=== PATIENT | female | born 1955 | race Caucasian/White ===

== ENCOUNTER 2025-01-22 21:24 | Inpatient (IN) | payer MEDICARE, MEDICAID, SELFPAY ==
[2025-01-22] VITALS (14 sets, daily range): BP systolic 139–193; BP diastolic 86–118; PULSE 89–109; RESP 16–25; TEMP 36.9; O2SAT 94–100
--- NOTE | 2025-01-22 21:27 | PD.EDALLER ---
ED Allergic Reaction RME/HPI General Chief complaint: Allergic Reaction Stated complaint: ALLERGIC REACTION Time Seen by Provider: 01/22/25 21:28 Arrival date/time: 01/22/25 21:24 RME / HPI RME / HPI narrative: Dr. [facility] Main ED Evaluation: 69yo female presents to the ED for progressive lingual swelling after eating a burrito with reported difficulty breathing. EMS was summoned and found the patient to be in [id number] distress. Patient was administered Benadryl 50mg IV. No IV established en route. Related Data Home Medications ?Medication ?Instructions ?Recorded ?Confirmed olanzapine 20 mg tablet 20 mg PO QDAY 12/21/18 02/07/21 oxybutynin chloride 10 mg 10 mg PO QDAY 01/09/20 02/07/21 tablet,extended release 24 hr (Ditropan XL) omeprazole 20 mg tablet,delayed 20 mg PO DAILY 05/02/20 02/07/21 release amlodipine 5 mg tablet 5 mg PO QDAY 02/07/21 02/07/21 Held on 02/08/21. Instructions: Resume on 02/22/21. Patient has had low systolic blood pressures while admitted. Systolic ranging between 100-110. She should see her PCP prior to resuming this medication. Highest systolic BP reading throughout hospitalization 144. famotidine 40 mg tablet 20 mg PO HS 02/07/21 02/07/21 lisinopril 20 1 tab PO QDAY 02/07/21 02/07/21 mg-hydrochlorothiazide 25 mg tablet Held on 02/08/21. Instructions: Resume on 02/22/21. Patient has had low systolic blood pressures while admitted. Systolic ranging between 100-110. She should see her PCP prior to resuming this medication. Highest systolic BP reading throughout hospitalization 144. Previous Rx's ?Medication ?Instructions ?Recorded albuterol sulfate 90 mcg/actuation 2 inh inhalation Q6H PRN shortness 02/17/21 breath activated powder inhaler of breath or wheezing #1 ea hydrocodone 5 mg-acetaminophen 325 1 tab PO BID PRN pain #10 tabs 03/11/21 mg tablet ibuprofen 800 mg tablet 800 mg PO TID PRN pain #30 tabs 03/11/21 Allergies Allergy/AdvReac Type Severity Reaction Status Date / Time No Known Allergies Allergy Verified 01/22/25 21:26 Review of Systems Review of Systems ROS Unobtainable: unobtainable due to medical condition Past Medical History Past Medical History NEUROLOGIC: Positive Seizures; Negative Neurological Disorders CARDIAC: Positive Cardiac Disorders, Hypercholesterolemia and Hypertension; Negative Congestive Heart Failure RESPIRATORY: Positive Asthma; Negative Chronic Obstructive Pulmonary Disease (COPD) GASTROINTESTINAL: Positive Gastrointestinal Disorders and Cirrhosis GENITOURINARY: Positive Genitourinary Disorders and Renal Disease REPRODUCTIVE: Negative Pelvic Inflammatory Disease MUSCULOSKELETAL: Positive Musculoskeletal Disorders and Arthritis ENDOCRINE: Negative Endocrine Disorders, Diabetes Mellitus Type 1 or Diabetes Mellitus Type 2 HEMATOLOGIC: Negative Blood Disorders or Sickle Cell Disease PSYCHO/SOCIAL: Positive Bipolar Disorder, Depression and Anxiety OTHER HISTORY: Positive Blood Transfusions; Negative Autoimmune Disease, Blood Transfusion Reaction, Anesthesia Reactions, Organ Transplant, MRSA, Vancomycin-Resistant Enterococci, Clostridium Difficile or Cancer Family History FAMILY HISTORY: Negative Family Cardiac Disorders Surgical History SURGICAL: Positive Section; Negative Endocrine Surgery, Thyroidectomy, Ear Surgery, Abdominal Surgery, Nephrectomy, Neurologic Surgery or Organ Transplant Social History SMOKING STATUS: Current some day smoker SECOND HAND EXPOSURE: Yes SUBSTANCE USE: methamphetamine ED Exam Narrative Physical exam: GENERAL APPEARANCE: alert and oriented x 4, well-developed, well-nourished, no acute distress HEENT: Normocephalic, atraumatic; pupils equal, round, reactive to light; EOMI; mucous membranes pink, moist; massive lingual edema with upper essence of the tongue in contact with the palate, 4+ sublingual swelling NECK: Supple, slight stridor LUNGS: CTABL; no wheezes, no rales, no rhonchi HEART: Regular rate, regular rhythm; normal S1, S2; no murmurs ABDOMEN: non distended; normal BS; soft, no tenderness, no guarding, no rebound; no masses, no organomegaly, no hernia BACK: no CVA tenderness EXTREMITIES: atraumatic; no edema NEUROLOGIC: awake; alert and oriented x4; cranial nerves II-XII grossly intact; no focal sensory or motor deficits SKIN: warm, dry, normal color; no rashes Course Course Course Narrative: 2123: Patient was seen by me immediately upon arrival. 2202: Patient intubated. Quality Measures none Orders Category Date Time Status Baird [Urinary Catheter] QS Care 01/22/25 23:24 Active XR chest 1V post procedure Stat Exams 01/22/25 21:35 Completed ABG [Arterial Blood Gas] Stat Lab 01/22/25 23:05 Completed CBC [CBC] Stat Lab 01/22/25 21:49 Completed CMP [Comprehensive Metabolic Panel] Stat Lab 01/22/25 21:49 Completed COVID-19 Antigen (In-House) Stat Lab 01/22/25 23:35 Completed Drug Screen,Urine Stat Lab 01/22/25 23:37 Completed Sputum Culture and Gram Stain Routine Lab 01/22/25 23:06 Received Type and Screen Stat Lab 01/22/25 23:56 Results Urinalysis, C/S if Indicated Stat Lab 01/22/25 23:37 Completed DiphenhydrAMINE INJ [Benadryl Inj] Med 01/22/25 21:28 Discontinued 25 mg IVP X1 ONE EPINEPHrine Inj [Adrenalin Inj] Med 01/22/25 21:28 Discontinued 0.3 mg SC X1 ONE EPINEPHrine Rt Janelle [Racemic Epi Rt Janelle] Med 01/22/25 21:28 Discontinued 0.5 ml INH X1 ONE EPINEPHrine Rt Janelle [Racemic Epi Rt Janelle] Med 01/22/25 22:34 Discontinued 0.5 ml INH X1 ONE EPINEPHrine Rt Janelle [Racemic Epi Rt Janelle] Med 01/22/25 21:46 Discontinued 1 ml .ROUTE .STK-MED ONE EPINEPHrine in NS 16 MG IVPB [Adrenalin/NS 16 MG IVPB] Med 01/22/25 21:34 Active 16 mg in 250 ml IV 0.05 mcg/kg/min Icatibant Med 01/22/25 23:42 Discontinued 30 mg SC X1 ONE Ketamine Inj Med 01/22/25 21:33 Discontinued 300 mg IVP X1 ONE Prochlorperazine Inj [Compazine Inj] Med 01/22/25 21:28 Discontinued 5 mg IV X1 ONE Propofol 1,000 mg Ivpb [Diprivan Ivpb] Med 01/22/25 21:55 Discontinued 1,000 mg in 100 ml IV .STK-MED Propofol 1,000 mg Ivpb [Diprivan Ivpb] Med 01/22/25 22:16 Active 1,000 mg in 100 ml IV 5 mcg/kg/min Propofol Inj [Diprivan Inj] Med 01/22/25 21:59 Discontinued 100 mg IV X1 ONE Rocuronium Inj [Zemuron Inj] Med 01/22/25 22:03 Discontinued 100 mg .ROUTE .STK-MED ONE Rocuronium Inj [Zemuron Inj] Med 01/22/25 22:01 Discontinued 70 mg IVP X1 ONE Sodium Chloride Rt Janelle 0.9% [NS Rt Janelle 0.9%] Med 01/22/25 21:28 Active 3 ml INH PRN PRN Sodium Chloride Rt Janelle 0.9% [NS Rt Janelle 0.9%] Med 01/22/25 22:34 Active 3 ml INH PRN PRN dexAMETHasone INJ [Decadron Inj] 10 mg Med 01/22/25 21:28 Discontinued Sodium Chloride 0.9% [Ns] 50 ml IV X1 Mechanical [Volume Ventilator] Stat RT 01/22/25 Active Sputum Induction PRN RT 01/22/25 22:45 Ordered Vital Signs Vital signs: Vital Signs Temperature 98.4 F 01/22/25 21: Pulse Rate 93 01/22/25 21:26 Respiratory Rate 16 01/22/25 21:26 Blood Pressure 139/98 H 01/22/25 21:26 Pulse Oximetry (%) 100 01/22/25 21:26 Oxygen Delivery Method Oxy Mask 01/22/25 21:26 PROCEDURES: Intubation Time out performed: No sedative: other (Ketamine 300mg and Propofol 100mg) Laryngoscope: fiber optic video scope Assist Device Used: fiber optic device ET Tube Size: 6 ET Tube Uncuffed: No Tube Secured Depth (cm): 23 Tube Secured Location: other (gum) Tube Placement Confirmation: visualized tube passing through cords, equal breath sounds bilaterally, no breath sounds over epigastrium and confirmation by capnometry Patient Tolerated Procedure: well and no complications Allergic Reaction MDM Narrative MDM Narrative:: Scribe Attestation: 01/22/25 Jesica Segovia am scribing for and in the presence of Dr. Thomas. 69yo female presents to the ED for progressive lingual swelling after eating a burrito with reported difficulty breathing. EMS was summoned and found the patient to be in [id number] distress. Patient was administered Benadryl 50mg IV. Please see PE findings. Patient was immediately placed on bus monitor, IV established, and patient received combination of antihistamines, IV steroids, subcutaneous, inhaled, and IV epi with slow gradual steady improvement and reduction of tongue swelling. Patient maintained an oxygen saturation in the high 90s throughout ED course. After discussion with the patient, decision was made to intubate her for airway protection. Patient remained hemodynamically stable without hypoxia throughout entire course. Hospitalist consulted and agrees to admit. Dx: anaphylactic shocl Patient data External records reviewed:: [facility] previous records (Per chart review, patient has no relevant previous ED visits.) and EMS form Clinical information provided by:: EMS Social determinants that could affect healthcare access:: none Patient has the following chronic illnesses:: seizures, HTN, cirrhosis How is presenting disease/condition affected by chronic disease/condition?: uneffected by Evaluation data The following diagnostics were reviewed and interpreted by me:: lab results, radiology exam(s) and EKG tracing(s) Lab and/or radiology exams considered but not ordered:: none Interpretation Summary: EKG done at 2134, sinus rhythm, rate of 97, no ectopy, left axis deviation, LAHB, according to my interpretation. Medications / Prescriptions Medications or Prescriptions considered but not ordered:: none Medication administrations:: Medication Administration History Diphenhydramine HCl (Diphenhydramine Inj 50 Mg/Ml Vial) 25 mg IVP Q6HR IVANA Stop: 02/22/25 05:59 Epinephrine/Sodium Chloride (Adrenalin/Ns 16 Mg Ivpb) 16 mg in 250 mls @ 4.842 mls/hr IV .Q24H PRN; Protocol PRN Reason: Per Protocol Stop: 02/21/25 21:33 Last Admin: 01/22/25 21:45 Dose: 0.05 mcg/kg/min, 4.842 mls/hr Documented By: BECKY Propofol (Diprivan Ivpb) 1,000 mg in 100 mls @ 3.099 mls/hr IV .Q24H PRN; Protocol PRN Reason: PER PROTOCOL Stop: 02/21/25 22:15 Last Titration: 01/23/25 00:39 Dose: 50 mcg/kg/min, 30.99 mls/hr Documented By: Titration: 01/23/25 00:35 Dose: 40 mcg/kg/min, 24.792 mls/hr Documented By: Titration: 01/23/25 00:30 Dose: 35 mcg/kg/min, 21.693 mls/hr Documented By: Titration: 01/23/25 00:25 Dose: 30 mcg/kg/min, 18.594 mls/hr Documented By: Titration: 01/23/25 00:20 Dose: 25 mcg/kg/min, 15.495 mls/hr Documented By: Titration: 01/23/25 00:15 Dose: 20 mcg/kg/min, 12.396 mls/hr Documented By: Titration: 01/23/25 00:10 Dose: 15 mcg/kg/min, 9.297 mls/hr Documented By: Titration: 01/22/25 23:52 Dose: 10 mcg/kg/min, 6.198 mls/hr Documented By: Titration: 01/22/25 23:46 Dose: 10 mcg/kg/min, 6.198 mls/hr Documented By: Titration: 01/22/25 22:20 Dose: 5 mcg/kg/min, 3.099 mls/hr Documented By: Admin: 01/22/25 22:09 Dose: 5 mcg/kg/min, 3.099 mls/hr Documented By: BECKY Co-signed By: Fentanyl Citrate (Sublimaze Inj 2,500 Mcg/250 Ml Bag) 2,500 mcg in 250 mls @ 2.5 mls/hr IV .Q24H PRN; Protocol PRN Reason: PER PROTOCOL Stop: 01/28/25 00:32 Last Admin: 01/23/25 00:46 Dose: 25 mcg/hr, 2.5 mls/hr Documented By: BECKY Co-signed By: Non-Formulary Medication (Icatibant) 30 mg SC X1 ONE Stop: 01/23/25 06:02 Sodium Chloride (Sodium Chloride Rt Janelle 0.9% 3 Ml Nebu) 3 ml INH PRN PRN PRN Reason: SOLN Stop: 02/21/25 21:27 Sodium Chloride (Sodium Chloride Rt Janelle 0.9% 3 Ml Nebu) 3 ml INH PRN PRN PRN Reason: SOLN Stop: 02/21/25 22:33 Discontinued Medications Diphenhydramine HCl (Diphenhydramine Inj 50 Mg/Ml Vial) 25 mg IVP X1 ONE Stop: 01/22/25 21:29 Last Admin: 01/22/25 21:42 Dose: 25 mg Documented By: BECKY Epinephrine (Epinephrine Rt Janelle 0.5 Ml Nebu) 0.5 ml INH X1 ONE Stop: 01/22/25 21:29 Last Admin: 01/22/25 21:30 Dose: 0.5 ml Documented By: JOHN Epinephrine (Epinephrine Rt Janelle 0.5 Ml Nebu) Confirm Administered Dose 1 ml .ROUTE .STK-MED ONE Stop: 01/22/25 21:47 Last Admin: 01/22/25 22:45 Dose: Not Given Documented By: JOHN Non-Admin Reason: Duplicate Medication on eMAR Epinephrine (Epinephrine Rt Janelle 0.5 Ml Nebu) 0.5 ml INH X1 ONE Stop: 01/22/25 22:35 Last Admin: 01/22/25 21:47 Dose: 0.5 ml Documented By: JOHN Epinephrine HCl (Epinephrine Inj 1 Mg/Ml Amp) 0.3 mg SC X1 ONE Stop: 01/22/25 21:29 Last Admin: 01/22/25 21:41 Dose: 0.3 mg Documented By: BECKY Famotidine (Famotidine Inj 10 Mg/Ml Vial 2 Ml) 20 mg IVP X1 ONE Stop: 01/23/25 00:12 Last Admin: 01/23/25 00:27 Dose: 20 mg Documented By: BECKY Dexamethasone Sodium Phosphate (10 mg/ Sodium Chloride) 51 mls @ 102 mls/hr IV X1 ONE Stop: 01/22/25 21:29 Last Infusion: 01/22/25 22:33 Dose: Infused Documented By: Admin: 01/22/25 21:42 Dose: 102 mls/hr Documented By: BECKY Propofol (Diprivan Ivpb) Confirm Administered Dose 1,000 mg in 100 mls @ ud IV .STK-MED ONE Stop: 01/22/25 21:56 Last Admin: 01/22/25 22:06 Dose: Not Given Documented By: BECKY Non-Admin Reason: Override Medication Ketamine HCl (Ketamine 50 Mg/Ml Vial 10 Ml) 300 mg IVP X1 ONE Stop: 01/22/25 21:34 Last Admin: 01/22/25 22:02 Dose: 300 mg Documented By: BECKY Comments: administered dr. wooten Methylprednisolone Sodium Succinate (Methylprednisolone Sod Succ 62.5 Mg/Ml 2ml Vial) 125 mg IVP QDAY IVANA Stop: 01/30/25 00:00 Last Admin: 01/23/25 00:26 Dose: Not Given Documented By: BECKY Non-Admin Reason: Cancelled by Provider Non-Formulary Medication (Icatibant) 30 mg SC X1 ONE Stop: 01/22/25 23:43 Prochlorperazine Edisylate (Prochlorperazine Inj 5 Mg/Ml Vial 2 Ml) 5 mg IV X1 ONE; Protocol Stop: 01/22/25 21:29 Last Admin: 01/22/25 22:20 Dose: 5 mg Documented By: BECKY Propofol (Propofol Inj 10 Mg/Ml Vial 20 Ml) 100 mg IV X1 ONE Stop: 01/22/25 22:00 Last Admin: 01/22/25 21:58 Dose: 100 mg Documented By: BECKY Comments: administered by DR. Wooten Rocuronium [place] (Rocuronium Inj 10 Mg/Ml Vial 10 Ml) 70 mg IVP X1 ONE Stop: 01/22/25 22:02 Last Admin: 01/22/25 22:27 Dose: 70 mg Documented By: BECKY Co-signed By: Comments: AMINISTERED BY DR. WOOTEN Rocuronium [place] (Rocuronium Inj 10 Mg/Ml Vial 10 Ml) Confirm Administered Dose 100 mg .ROUTE .STK-MED ONE Stop: 01/22/25 22:04 Last Admin: 01/22/25 22:32 Dose: Not Given Documented By: BECKY Non-Admin Reason: Override Medication see above Consultations Consultation(s) initiated? (list below): Yes Consultation #1 (Physician, Specialty, Details): Discussed case with the resident physician, attending Dr. Posada from Hospitalist service regarding admission. Discussed patients ED course, exam findings, labs, and radiology results. The Hospitalist agrees to accept the patient for admission. Time: 20:11 Diagnosis Differential Diagnosis allergic reaction: anaphylaxis, allergic reaction and angioedema Most likely diagnosis given after review of the tests above:: anaphylactic shock Admission Indicated Admission indicated?: indicated Admission Request Was there a request for admission?: Yes Admission Attestation Admission request attestation: Discussed case with [] from Hospitalist service regarding admission. Discussed patients ED course, exam findings, labs, and radiology results. The Hospitalist [agrees,declines] to accept the patient for admission. Disposition Plan Disposition Plan: Admit Critical Care Time Critical Care Time Critical Care Time: Yes Total Critical Care Time (min.): 45 Attestation: The high probability of sudden, clinically significant deterioration in the patient?s condition required the highest level of my preparedness to intervene urgently. The services I provided to this patient were to treat and/or prevent clinically significant deterioration. Services included the following: chart data review, reviewing nursing notes and/or old charts, documentation time, it infrastructure consultant collaboration regarding findings and treatment options, medication orders and management, direct patient care, vital sign assessments and ordering, interpreting and reviewing diagnostic studies and lab tests. Aggregate critical care time includes only time during which I was engaged in work directly related to the patient?s care, as described above, whether at bedside or elsewhere in the Emergency Department. It did not include time spent performing other reported procedures or the services of residents, students, nurses or physician assistants. Discharge Plan Plan Patient Disposition: Admit Acute Care w/in Hospital Problem List Clinical Impression: Anaphylactic shock
[2025-01-22] MEDS: EPINEPHrine RT SOL 0.5 ML NEBU INH ×2 (21:30→21:47)
--- NOTE | 2025-01-22 21:35 | XR_ITS ---
EXAMINATION: AP chest single view TECHNIQUE: AP portable semiupright chest single view Date and time: January 22, 2025, 10:23 p.m., comparison February 17, 2021 INDICATIONS: Hypoxic respiratory failure today. FINDINGS: Bilateral bibasilar pneumonia Elevation left hemidiaphragm Possible significant left pleural fluid Mild enlargement cardiac contour Moderate vascular congestion Prominent thoracic dextroscoliosis Tracheal tube tip 3 cm above rafaela Prominent osteopenia IMPRESSION: Bilateral perihilar bibasilar pneumonia, significant pneumonia left base Possible left pleural fluid Tracheal tube tip 3 cm above rafaela Moderate vascular congestion
[2025-01-22] MEDS: EPINEPHrine INJ 1 MG/ML AMP 0.3 MG SC (21:41)
[2025-01-22] MEDS: EPINEPHrine in NS 16 MG IVPB 16 MG/250 ML BAG 4.842 MG IV (21:45)
[2025-01-22 21:55] LABS: Basophils # (Auto) 0.0 Thou/mm3 (0.0-0.2); Basophils % (Auto) 0 % (0-2.5); Eosinophils # (Auto) 0.3 Thou/mm3 (0.0-0.5); Eosinophils % (Auto) 3 % (0-10); Hematocrit 41.4 % (36.0-46.0); Hemoglobin 12.8 g/dL (12.0-16.0); Immature Granulocytes Auto 0.04 Thou/mm3 (0.00-0.00); Lymphocytes # (Auto) 2.7 Thou/mm3 (1.0-4.8); Lymphocytes % (Auto) 31 % (10-50); Mean Corpuscular HGB Conc 30.9 g/dl (31.0-37.0); Mean Corpuscular Hemoglobin 28.4 pg (25.0-35.0); Mean Corpuscular Volume 92 fL (80-100); Monocytes # (Auto) 0.9 Thou/mm3 (0.0-0.8); Monocytes % (Auto) 10 % (0-12); Neutrophils # (Auto) 4.7 Thou/mm3 (1.8-7.7); Neutrophils % (Auto) 55 % (37-80); Nucleated Red Blood Cell # 0.00 Thou/mm3 (0.00-0.00); Nucleated Red Blood Cell % 0 /100 WBC (0); Platelet Count 308 Thou/mm3 (140-440); RDW Standard Deviation 46.8 fL (36.4-46.3); Red Blood Count 4.50 Miln/mm3 (4.00-5.20); White Blood Count 8.7 Thou/mm3 (3.6-11.0)
[2025-01-22] MEDS: PROPOFOL INJ 10 MG/ML VIAL 20 ML 100 MG IV (21:58)
[2025-01-22] MEDS: KETAMINE 50 MG/ML VIAL 10 ML 300 MG IVP (22:02)
[2025-01-22] MEDS: PROPOFOL 1,000 MG IVPB 1,000 MG/100 ML VIAL 3.099 MG IV (22:09)
[2025-01-22 22:13] LABS: Alanine Aminotransferase 17 U/L (10-49); Albumin, Serum 4.5 gm/dL (3.4-4.8); Albumin/Globulin Ratio 1.4 (1.2-2.2); Alkaline Phosphatase 102 U/L (46-116); Anion Gap 12 (7-16); Aspartate Amino Transferase 16 U/L (0-34); BUN/Creatinine Ratio 19 Ratio (12-20); Bilirubin,Total 0.2 mg/dL (0.3-1.2); Blood Urea Nitrogen 26 mg/dL (9-23); Calcium 9.1 mg/dL (8.3-10.6); Calcium (Corrected) 9.1 mg/dL (8.5-10.1); Carbon Dioxide 26.5 mMol/L (20.0-31.0); Chloride 108 mMol/L (98-107); Creatinine (Component) 1.4 mg/dL (0.6-1.3); Globulin 3.3 gm/dL (2.3-3.5); Glucose 103 mg/dL (74-106); Osmolality,Calculated 295 (275-295); Potassium 4.0 mMol/L (3.4-5.1); Sodium 146 mMol/L (136-145); Total Protein 7.8 gm/dL (5.7-8.2); eGFR 41 See Note
[2025-01-22] MEDS: PROCHLORPERAZINE INJ 5 MG/ML VIAL 2 ML IV (22:20)
[2025-01-22] MEDS: ROCURONIUM INJ 10 MG/ML VIAL 10 ML 70 MG IVP (22:27)
[2025-01-22 23:15] LABS: Base Excess -5 (-3-3); HCO3 24 mEq/L (20-26); O2 Saturation 99 % (91-98); PCO2 60 mmHg (32.0-48.0); PO2 155 mmHg (83-108); pH, Arterial 7.21 (7.35-7.45)
[2025-01-22 23:16] LABS: Allen Test Not Performed; Inspired Oxygen, FIO2 100 %; Puncture Site Left Radial
[2025-01-22 23:50] LABS: Collection Type, Urine Clean Catch
[2025-01-23] VITALS (139 sets, daily range): BP systolic 106–197; BP diastolic 64–121; PULSE 62–108; RESP 18–32; TEMP 36.1–37.2; O2SAT 91–100; BMI 50.1; BMI 49.9
[2025-01-23 00:01] LABS: Bilirubin,Urine Negative (Negative); Blood,Urine Negative (Negative); Clarity,Urine Clear (Clear/Hazy); Color,Urine Lt-Yellow (Lt Yel-Yel); Culture Indicated,Urine Not Indicated; Glucose, Urine Negative (Negative); Hyaline Casts,Urine < 1 /hpf (0-1); Ketones,Urine Negative (Negative); Leukocyte Esterase,Urine Positive (Negative); Nitrite,Urine Negative (Negative); PH,Urine 5.5 (5.0-7.0); Protein,Urine 1+ (Neg - Trace); RBC,Urine 3 /hpf (0-3); Specific Gravity,Urine 1.022 (1.001-1.035); Squamous Epithelial Cell,Urine 1 /hpf (0-5); Urobilinogen,Urine Negative mg/dL (0.0-1.0); WBC,Urine 4 /hpf (0-5)
[2025-01-23 00:03] LABS: COVID-19 Antigen (In-House) Negative (Negative)
[2025-01-23 00:18] LABS: Amphetamine/Methamp Scrn,U Positive (Negative); Barbiturate Screen,Urine Negative (Negative); Benzodiazepines Screen,Urine Negative (Negative); Benzoylecgonine Screen, Ur Negative (Negative); Fentanyl Screen,Urine Negative (Negative); Opiate Screen,Urine Negative (Negative); THC Screen,Urine Negative (Negative)
[2025-01-23] MEDS: FAMOTIDINE INJ 10 MG/ML VIAL 2 ML 20 MG IVP ×3 (00:27→20:48)
--- NOTE | 2025-01-23 00:41 | ESHP_ITS ---
Documentation for date of: 01/23/25 HPI History of Present Illness Chief complaint: tongue swelling History of present illness: Ms. Garg is a 69-year-old female with past medical history significant for cirrhosis secondary to alcohol use, hepatitis C, hypertension, COPD, chronic kidney disease presented to the ED with excessive tongue swelling on 02/01/2025. Per patient's daughters, last well-known time was 6 PM. She was seen in the ED and a burrito her friend made which included ground beef chorizo, sour cream and cheese for the first time. Around 7 PM, patient told her daughter who just had came home, that she felt like she was chewing her tongue, while eating her burrito. Around 7:30 PM, her daughter gave her 2 Benadryl and loratadine, however patient's swelling of her tongue and face continued to increase in size, and decided to call the ambulance at 9:42 PM. Of note, patient has had her first episode of tongue swelling on 06/01/2023 where she was then seen by her regular doctor and was treated with loratadine and Banophen, which seem to have resolved her symptoms shortly after. She had another episode on 10/31/2024 where her face was swollen, and was given epi shot, and symptoms shortly resolved. Past medical history: As mentioned above Past surgical history: Bilateral knee surgeries years ago Meds: Patient takes olanzapine 20 mg daily, lisinopril/hydrochlorothiazide 20?25mg, Effexor 37.5 milligrams daily, pramipexole 0.5 mg twice daily, amlodipine 5 mg daily. Per daughter, patient tries to take all her medications daily however does forget at times. Social history: Patient lives with her daughter. Is a current smoker, smokes 10 cigarettes a day for the last 10 years, severe drinker in the past, but quit about 20 years ago, and has used meth in the past, but daughters are unsure when her last meth use was. Family history: Unknown as patient was adopted Allergies: Per patient's daughters NKDA up to now ED course: After coming into the ED, patient initially seen with 4+ sublingual swelling along with massive lingual edema, minimally stridorous, requiring oxymask. Per ER doctor, patient's tongue was swollen and touching the upper palate. ED vitals 139/98, HR 93, RR 16, Temp 98.4F, on Oxymask, unsure how many liters. After being given racemic epinephrine x 2, Benadryl, Decadron, p.o. Compazine, and subcu epi, and started on epinephrine drip patient swelling somewhat decreased in order to intubate patient to protect her airway. Patient has a 6 inch ET tube with 7 mL/kg vent settings, started on propofol drip. CXR showed Bilateral perihilar bibasilar pneumonia, significant pneumonia left base, possible left pleural fluid, tracheal tube tip 3 cm above rafaela, and moderate vascular congestion. ICU was consulted for further management of patient with anaphylactic shock. Review of Systems Review of Systems ROS Unobtainable: due to endotracheal tube Exam Vital Signs Temp Pulse Resp BP Pulse Ox O2 Del Method FiO2 98.4 F 103 H 18 161/87 H 100 Mechanical Ventilation 100 01/22/25 21:26 01/22/25 23:00 01/22/25 23:00 01/22/25 23:00 01/22/25 23:00 01/22/25 23:00 01/22/25 22:47 Narrative Exam General Appearance: Pt intubated and sedated, tongue is massively swollen with ETT pressed in between tongue and upper palate as well as sublingual swelling HEENT: NC/AT, no scleral icterus, no conjunctival pallor, MMM, PERRLA, spontaneously opens her eyes Lungs: CTAB, no wheezes or crackles appreciated CVS: RRR, S1/S2 heard, no murmurs or rubs appreciated ABD: Soft, obese non-tender, non-distended, BS + in all 4 quadrants EXT: no lesions/cyanosis/clubbing, radial pulses 2+ BL, DP pulses 2 + BL SKIN: Mild erythematous rash seen scattered mostly around her latter-day and cheekbones. Periorbital hyperpigmentation of right eye, onchomycosis of b/l toenails Neuro: Patient seen moving all extremities. Prior to increasing sedation, patient was a GCS E(3) V(NT) M(6). Results: Labs 01/23/25 05:25 01/23/25 05:25 Labs: Short CBC 01/22/25 Range/Units 21:49 WBC 8.7 (3.6-11.0) Thou/mm3 Hgb 12.8 (12.0-16.0) g/dL Hct 41.4 (36.0-46.0) % Plt Count 308 (140-440) Thou/mm3 [facility] 01/22/25 21:49 Sodium 146 H Potassium 4.0 Chloride 108 H Carbon Dioxide 26.5 BUN 26 H Creatinine 1.4 H Glucose 103 Calcium 9.1 Liver Function 01/22/25 Range/Units 21:49 Total Bilirubin 0.2 L (0.3-1.2) mg/dL AST 16 (0-34) U/L ALT 17 (10-49) U/L Alkaline Phosphatase 102 (46-116) U/L Albumin 4.5 (3.4-4.8) gm/dL Urine 01/22/25 Range/Units 23:37 Urine Color Lt-Yellow (Lt Yel-Yel) Urine Clarity Clear (Clear/Hazy) Urine pH 5.5 (5.0-7.0) Ur Specific [place] 1.022 (1.001-1.035) Urine Protein 1+ A (Neg - Trace) Urine Glucose (UA) Negative (Negative) ABG Interpretation ABG results: 01/22/25 23:05 ABG pH 7.21 L ABG pCO2 60 H ABG pO2 155 H ABG HCO3 24 ABG O2 Saturation 99 H ABG Base Excess -5 L Quality Measures Quality Measures VTE prophylaxis Advance care planning discussed with:: patient Medications Home Medications and Allergies Home Medications ?Medication ?Instructions ?Recorded ?Confirmed ?Type olanzapine 20 mg tablet 20 mg PO QDAY 12/21/1801/23 History amlodipine 5 mg tablet 5 mg PO QDAY 02/07/21 History lisinopril 20 1 tab PO QDAY 02/07/2101/23 History mg-hydrochlorothiazide 25 mg tablet pramipexole 0.5 mg tablet 0.5 mg PO BID 01/23/2501/23 History venlafaxine 37.5 mg tablet 37.5 mg PO DAILY 01/23/25 1 03/26/24 History Allergies Allergy/AdvReac Type Severity Reaction Status Date / Time No Known Allergies Allergy Verified 01/22/25 21:26 Visit Medications Diphenhydramine HCl (Diphenhydramine Inj 50 Mg/Ml Vial) 25 mg IVP Q6HR IVANA Stop: 02/22/25 05:59 Epinephrine/Sodium Chloride (Adrenalin/Ns 16 Mg Ivpb) 16 mg in 250 mls @ 4.842 mls/hr IV .Q24H PRN; Protocol PRN Reason: Per Protocol Stop: 02/21/25 21:33 Last Admin: 01/22/25 21:45 Dose: 0.05 mcg/kg/min, 4.842 mls/hr Propofol (Diprivan Ivpb) 1,000 mg in 100 mls @ 3.099 mls/hr IV .Q24H PRN; Protocol PRN Reason: PER PROTOCOL Stop: 02/21/25 22:15 Last Titration: 01/23/25 00:35 Dose: 40 mcg/kg/min, 24.792 mls/hr Fentanyl Citrate (Sublimaze Inj 2,500 Mcg/250 Ml Bag) 2,500 mcg in 250 mls @ 2.5 mls/hr IV .Q24H PRN; Protocol PRN Reason: PER PROTOCOL Stop: 01/28/25 00:32 Non-Formulary Medication (Icatibant) 30 mg SC X1 ONE Stop: 01/23/25 06:02 Sodium Chloride (Sodium Chloride Rt Janelle 0.9% 3 Ml Nebu) 3 ml INH PRN PRN PRN Reason: SOLN Stop: 02/21/25 21:27 Sodium Chloride (Sodium Chloride Rt Janelle 0.9% 3 Ml Nebu) 3 ml INH PRN PRN PRN Reason: SOLN Stop: 02/21/25 22:33 Discontinued Medications Diphenhydramine HCl (Diphenhydramine Inj 50 Mg/Ml Vial) 25 mg IVP X1 ONE Stop: 01/22/25 21:29 Last Admin: 01/22/25 21:42 Dose: 25 mg Epinephrine (Epinephrine Rt Janelle 0.5 Ml Nebu) 0.5 ml INH X1 ONE Stop: 01/22/25 21:29 Last Admin: 01/22/25 21:30 Dose: 0.5 ml Epinephrine (Epinephrine Rt Janelle 0.5 Ml Nebu) 0.5 ml INH X1 ONE Stop: 01/22/25 22:35 Last Admin: 01/22/25 21:47 Dose: 0.5 ml Epinephrine HCl (Epinephrine Inj 1 Mg/Ml Amp) 0.3 mg SC X1 ONE Stop: 01/22/25 21:29 Last Admin: 01/22/25 21:41 Dose: 0.3 mg Famotidine (Famotidine Inj 10 Mg/Ml Vial 2 Ml) 20 mg IVP X1 ONE Stop: 01/23/25 00:12 Last Admin: 01/23/25 00:27 Dose: 20 mg Dexamethasone Sodium Phosphate (10 mg/ Sodium Chloride) 51 mls @ 102 mls/hr IV X1 ONE Stop: 01/22/25 21:29 Last Infusion: 01/22/25 22:33 Dose: Infused Ketamine HCl (Ketamine 50 Mg/Ml Vial 10 Ml) 300 mg IVP X1 ONE Stop: 01/22/25 21:34 Last Admin: 01/22/25 22:02 Dose: 300 mg Methylprednisolone Sodium Succinate (Methylprednisolone Sod Succ 62.5 Mg/Ml 2ml Vial) 125 mg IVP QDAY IVANA Stop: 01/30/25 00:00 Last Admin: 01/23/25 00:26 Dose: Not Given Non-Formulary Medication (Icatibant) 30 mg SC X1 ONE Stop: 01/22/25 23:43 Prochlorperazine Edisylate (Prochlorperazine Inj 5 Mg/Ml Vial 2 Ml) 5 mg IV X1 ONE; Protocol Stop: 01/22/25 21:29 Last Admin: 01/22/25 22:20 Dose: 5 mg Propofol (Propofol Inj 10 Mg/Ml Vial 20 Ml) 100 mg IV X1 ONE Stop: 01/22/25 22:00 Last Admin: 01/22/25 21:58 Dose: 100 mg Rocuronium [place] (Rocuronium Inj 10 Mg/Ml Vial 10 Ml) 70 mg IVP X1 ONE Stop: 01/22/25 22:02 Last Admin: 01/22/25 22:27 Dose: 70 mg Assessment & Plan Plan Ms. Garg is a 69-year-old female with past medical history significant for cirrhosis secondary to alcohol use, hepatitis C, hypertension, COPD, chronic kidney disease presented to the ED with excessive tongue swelling on 02/01/2025 and admitted to ICU for further management of patient with anaphylactic shock. NEURO #Sedated and Intubated Patient intubated for airway protection and acute hypoxia. Per ER staff, patient was a GCS 15 with the exception of unable to produce speech d/t her massive lingual edema. -Propofol and Fentanyl infusion to RAAS -3 -Daily sedation holiday as tolerated -Extubate once patient's swelling resolves #Restless Leg Syndrome Patient takes home Pramipexole. -Restart when patient is extubated, and passes speech eval CARDIO #Angioedema Patient is on ACEI and per family had a burrito made of ground beef, cheese, and sour cream, and shortly after experienced worsening massive lingual edema. Patient received racemic epinephrine x 2, Benadryl, Decadron, p.o. Compazine, and subcu epi, and started on epinephrine drip patient swelling somewhat decreased in order to intubate patient to protect her airway. Patient has had two episodes in the past treated w/ antihistamines and epinephrine shots. DDx: Anaphylaxis Given hx of recurrent episodes, possible food triggered IgE mediated anaphylaxis, bradykinin-mediated angioedema. Patient takes home Lisinopril. -Epinephrine can wean and stopped as patient's airway edema is improving. -Continue to monitor BP -Continuous cardiac monitoring -Trend Lactic acid -Hold off antihypertensives -Decadron 10mg QD x 1 given, consider giving another dose in 24 hours -Famotidine IV (H2) and Benadryl Q6HR (H1) ordered as adjunctive therapy to anaphylaxis -Ordered Icartibant 30mg SC, competitive antagonist of the bradykinin B2 receptor, however not available at pharmacy -S/p extubation, patient would benefit from actively recalling exactly what she consumed prior to anaphylaxis -Ordered send out labs: Tryptase ordered for recurrent and severe anaphylaxis, as well as C1 esterase inhibitor, and Complement C4 to rule our Hereditary Angioedema -Patient will need to be discharged with an Epi pen for future anaphylactic episodes #Hx of HTN -Hold off antihypertensives PULM #Acute hypoxic & hypercapnic respiratory failure 2/2 #Airway obstruction #Sublingual swelling Patient mainly intubated due to laryngeal edema/tongue swelling, however per ER nurse, patient was brought in EMS via oxymask, unsure how my liters. Per ER physician, patient has swelling well into the largynx, and as result, the biggest ETT that could be placed was 6in. PCO2 of 65 on recent ABG CXR showed Bilateral perihilar bibasilar pneumonia, significant pneumonia left base, possible left pleural fluid, tracheal tube tip 3 cm above rafaela, and moderate vascular congestion. Less likely to be infectious, since daughters brought patient after an allergic reaction, and didn't state any other complaints she had around the incident. -ACVC, 7ml/kg, VT 320, RR 28, FiO2 60, PEEP 5 wean as tolerated, -Consider scheduled albuterol or racemic epi neb if bronchospasm -Airway edema protection with Dexamethasone 10mg qday, received x 1 dose 21:45 01/22/25 -Extubation once airway edema improves #COPD Patient has a history of smoking, currently is a 5pack-year hx. No wheezing noted on PE. Patient doesn't use any home COPD medications , and unsure when she used her last rescue inhaler -Patient received Dexamethasone 10mg x1 01/22/25, can continue daily to help w/airway edema GI/FEN #GI Prophylaxis -Famotidine 20mg IV QD #Hepatitis C-stable Patient's daughter states that she was treated in the past. #History of Cirrhosis-stable Patient has a hx of heavy EtOH use in the past. Does not appear to be in acute decompensated liver disease RENAL #Respiratory acidosis -improving Post intubation settings - patient has a pH of 7.2, PCO2 of 65, and HCO3 24. Patient appears to have persistent primary respiratory acidosis despite changing RR from 18 to 24 Patient could have higher airway resistance d/t smaller ETT Repeat ABG pH of 7.3, PCO2 49, and HCO3 24, Ti was also decreased prior to his ABG check -F/u repeat ABG -RT to f/u and suction for any secretions -Check for any air trapping, and consider increasing inspiratory flow rate -Possible albuteral nebulization or racemic epinephrine if upper airway edema compressing tube #Lactic acidosis Likely in setting of Epinephrine drip F/U lactate after stopping epi drip F/U triglycerides and CK levels. #CKD Patient's family states that she has a history of kidney injury. Compared to her baseline Cr 3 years ago, her creatinine is 1.5. It could be simply her new baseline now vs MOLLY vs CKD. -Monitor UO -Avoid nephrotoxic agents -F/u BMP HEME/ONC no active issues ENDO no active issues ID no active issues MSK no active issues PSYCH #Polysubstance use Patient is a meth user. Utox positive for Meth. -Consult mental health social worker for outpatient resources -Tobacco counselling cessation #Bipolar Disorder #MDD Patient takes home Venlafaxine and Olanzapine. -Restart when patient is extubated, and passes speech eval Health Maintenance: DVT prophylaxis: SCDs GI prophylaxis: Famotidine 20 IV Diet: NPO Baird: Yes Lines: PIV Drips: Propofol, Fentanyl, Epi Vent: Tidal volume 320 @7ml/kg, RR 28, FiO2 60, PEEP 5 CODE STATUS: Full code Disposition: Admitted to ICU for Angioedema and AHHRF 2/2 airway obstruction requiring intubation. Patient's care and plan discussed with my attending, Dr. Pagan. Sis Torres, PGY-3 Attending Provider Attestation/Addendum After examining patient and review of the clinical data patient was found to have high probability of imminent deterioration which required my direct management and intervention TOTAL CC TIME: 60 MIN TOTAL TIME: 60 Minutes of direct medical management and planning of care of Angioedema with severe airway obstruction I Basil Posada MD, attest that I was physically present for rojas portions of evaluation, and examined patient, labs and imagings and plan of care were discussed with IM resident, and I agree with the findings and plans documented above.
[2025-01-23] MEDS: fentaNYL 2,500 MCG/250 ML BAG 2,500 MCG/250 ML BAG IV (00:46)
[2025-01-23 00:54] LABS: Allen Test Not Performed; Base Excess -6 (-3-3); HCO3 24 mEq/L (20-26); Inspired Oxygen, FIO2 75 %; O2 Saturation 95 % (91-98); PCO2 65 mmHg (32.0-48.0); PO2 92 mmHg (83-108); Puncture Site Right Radial; pH, Arterial 7.20 (7.35-7.45)
[2025-01-23] MEDS: EPINEPHrine in NS 16 MG IVPB 16 MG/250 ML BAG 2.421 MG IV (02:00)
[2025-01-23 02:23] LABS: Lactate (Lactic Acid) 2.7 mMol/L (0.4-2.0)
--- NOTE | 2025-01-23 02:48 | PC.NURSE ---
REPORT CALLED TO TRACE JAMES.
[2025-01-23] MEDS: PROPOFOL 1,000 MG IVPB 1,000 MG/100 ML VIAL 30.99 MG IV ×4 (02:54→21:49)
[2025-01-23] MEDS: EPINEPHrine in NS 16 MG IVPB 16 MG/250 ML BAG 4.842 MG IV (04:30)
[2025-01-23 04:54] LABS: Base Excess -3 (-3-3); HCO3 24 mEq/L (20-26); Inspired Oxygen, FIO2 60 %; PCO2 49 mmHg (32.0-48.0); PO2 114 mmHg (83-108); pH, Arterial 7.30 (7.35-7.45)
[2025-01-23 05:11] LABS: Allen Test Performed/OK; O2 Saturation 94 % (91-98); Puncture Site Left Radial
[2025-01-23 05:24] LABS: Reflex Lactate? Y
[2025-01-23 05:56] LABS: Lactic Acid, 3 HR 3.5 mMol/L (0.4-2.0)
[2025-01-23 06:27] LABS: Basophils # (Auto) 0.0 Thou/mm3 (0.0-0.2); Basophils % (Auto) 0 % (0-2.5); Eosinophils # (Auto) 0.0 Thou/mm3 (0.0-0.5); Eosinophils % (Auto) 0 % (0-10); Hematocrit 38.3 % (36.0-46.0); Hemoglobin 11.8 g/dL (12.0-16.0); Immature Granulocytes Auto 0.08 Thou/mm3 (0.00-0.00); Lymphocytes # (Auto) 0.9 Thou/mm3 (1.0-4.8); Lymphocytes % (Auto) 6 % (10-50); Mean Corpuscular HGB Conc 30.8 g/dl (31.0-37.0); Mean Corpuscular Hemoglobin 28.5 pg (25.0-35.0); Mean Corpuscular Volume 93 fL (80-100); Monocytes # (Auto) 0.4 Thou/mm3 (0.0-0.8); Monocytes % (Auto) 2 % (0-12); Neutrophils # (Auto) 13.8 Thou/mm3 (1.8-7.7); Neutrophils % (Auto) 91 % (37-80); Nucleated Red Blood Cell # 0.00 Thou/mm3 (0.00-0.00); Nucleated Red Blood Cell % 0 /100 WBC (0); Platelet Count 330 Thou/mm3 (140-440); RDW Standard Deviation 47.4 fL (36.4-46.3); Red Blood Count 4.14 Miln/mm3 (4.00-5.20); White Blood Count 15.1 Thou/mm3 (3.6-11.0)
[2025-01-23 07:55] LABS: Alanine Aminotransferase 17 U/L (10-49); Albumin, Serum 4.1 gm/dL (3.4-4.8); Albumin/Globulin Ratio 1.4 (1.2-2.2); Alkaline Phosphatase 89 U/L (46-116); Anion Gap 13 (7-16); Aspartate Amino Transferase 15 U/L (0-34); BUN/Creatinine Ratio 21 Ratio (12-20); Bilirubin,Total 0.2 mg/dL (0.3-1.2); Blood Urea Nitrogen 29 mg/dL (9-23); Calcium 8.7 mg/dL (8.3-10.6); Calcium (Corrected) 8.7 mg/dL (8.5-10.1); Carbon Dioxide 22.2 mMol/L (20.0-31.0); Chloride 110 mMol/L (98-107); Creatinine (Component) 1.4 mg/dL (0.6-1.3); Estimated Creatinine Clearance 38.4 mL/min (>60); Globulin 2.9 gm/dL (2.3-3.5); Glucose 179 mg/dL (74-106); Magnesium 1.3 mg/dL (1.6-2.6); Osmolality,Calculated 298 (275-295); Phosphorous 2.1 mg/dL (2.4-5.1); Potassium 4.2 mMol/L (3.4-5.1); Sodium 145 mMol/L (136-145); Total Protein 7.0 gm/dL (5.7-8.2); eGFR 41 See Note
[2025-01-23 08:08] LABS: Creatine Kinase 61 U/L (34-171); Triglycerides 77 mg/dL (30-150)
[2025-01-23 08:45] LABS: Misc Send Out* See Sep Rpt
[2025-01-23 08:50] LABS: Lactate (Lactic Acid) 4.7 mMol/L (0.4-2.0)
[2025-01-23] MEDS: POT PHOS 15 mMol in NS 250 ML 15 MMOL/250 ML BAG 62.5 MMOL IV (09:21)
[2025-01-23] MEDS: Magnesium Sulfate 4 GM Ivpb 4 GM/50 ML BAG IV (09:22)
[2025-01-23] MEDS: RINGERS LACTATED 1000 ML 1,000 ML 999 ML IV (10:04)
[2025-01-23] MEDS: PROPOFOL 1,000 MG IVPB 1,000 MG/100 ML VIAL 21.693 MG IV ×2 (10:53→14:20)
[2025-01-23 11:43] LABS: Reflex Lactate? Y
--- NOTE | 2025-01-23 13:37 | ESPR_ITS ---
<Statement entered by Swathi Rivera MD - 01/23/25 19:38> I have reviewed the note and agree with the resident's assessment & plan with exceptions as below. I have personally reviewed labs, imaging, home meds/prior records, examined the patient, formulated and discussed management plan with the IM team. Swathi Rivera, PGY-2 Internal Medicine Documentation for date of: 01/23/25 Subjective Subjective Interval history: Ms. Garg is a 69-year-old female with past medical history significant for cirrhosis secondary to alcohol use, hepatitis C, hypertension, COPD, chronic kidney disease presented to the ED with excessive tongue swelling on 02/01/2025. Per patient's daughters, last well-known time was 6 PM. She was seen in the ED and a burrito her friend made which included ground beef chorizo, sour cream and cheese for the first time. Around 7 PM, patient told her daughter who just had came home, that she felt like she was chewing her tongue, while eating her burrito. Around 7:30 PM, her daughter gave her 2 Benadryl and loratadine, however patient's swelling of her tongue and face continued to increase in size, and decided to call the ambulance at 9:42 PM. Of note, patient has had her first episode of tongue swelling on 06/01/2023 where she was then seen by her regular doctor and was treated with loratadine and Banophen, which seem to have resolved her symptoms shortly after. She had another episode on 10/31/2024 where her face was swollen, and was given epi shot, and symptoms shortly resolved. Past medical history: As mentioned above Past surgical history: Bilateral knee surgeries years ago Meds: Patient takes olanzapine 20 mg daily, lisinopril/hydrochlorothiazide 20?25mg, Effexor 37.5 milligrams daily, pramipexole 0.5 mg twice daily, amlodipine 5 mg daily. Per daughter, patient tries to take all her medications daily however does forget at times. Social history: Patient lives with her daughter. Is a current smoker, smokes 10 cigarettes a day for the last 10 years, severe drinker in the past, but quit about 20 years ago, and has used meth in the past, but daughters are unsure when her last meth use was. Family history: Unknown as patient was adopted Allergies: Per patient's daughters NKDA up to now ED course: After coming into the ED, patient initially seen with 4+ sublingual swelling along with massive lingual edema, minimally stridorous, requiring oxymask. Per ER doctor, patient's tongue was swollen and touching the upper palate. ED vitals 139/98, HR 93, RR 16, Temp 98.4F, on Oxymask, unsure how many liters. After being given racemic epinephrine x 2, Benadryl, Decadron, p.o. Compazine, and subcu epi, and started on epinephrine drip patient swelling somewhat decreased in order to intubate patient to protect her airway. Patient has a 6 inch ET tube with 7 mL/kg vent settings, started on propofol drip. CXR showed Bilateral perihilar bibasilar pneumonia, significant pneumonia left base, possible left pleural fluid, tracheal tube tip 3 cm above rafaela, and moderate vascular congestion. ICU was consulted for further management of patient with anaphylactic shock. 01/23/2025 Patient examined bedside. Currently on propofol 40 and fentanyl 75 intubated an echo was done bedside showed good contractility of the heart patient GCS she was able to open eyes and follow commands intubation prevented her from speaking. The family informed interviewers that patient has bedbugs at home contact precautions have been placed her ABG showed improved respiratory acidosis her UDS came back positive for meth she had her phosphorus and magnesium repleted. Pharmacy spoke to resident and recommends holding Icatibant, since it is only useful in the acute phase. They also recommend holding ACEi and ropinole due to risk for angioedema, and recommend potentially increasing amlodipine for blood pressure management. Exam Vital Signs Temp Pulse Resp BP Pulse Ox O2 Del Method FiO2 97.0 F 66 21 H 122/75 92 L Mechanical Ventilation 01/23/25 12:01 01/23/25 13:01 01/23/25 03:00 01/23/25 12:45 01/23/25 13:01/23/25 01:40 01/23/25 12:00 Narrative Exam General Appearance: Pt intubated and sedated, tongue is swollen, normal pink coloration with ETT pressed in between tongue and upper palate as well as sublingual swelling HEENT: NC/AT, no scleral icterus, no conjunctival pallor, MMM, PERRLA, spontaneously opens her eyes Lungs: CTAB, no wheezes or crackles appreciated CVS: RRR, S1/S2 heard, no murmurs or rubs appreciated ABD: Soft, obese non-tender, non-distended, BS + in all 4 quadrants EXT: skin bronzing from chronic venous stasis, radial pulses 2+ BL, DP pulses 2 + BL, grade 1 bilateral non-pitting edema SKIN: Mild erythematous rash seen scattered mostly around her holiness and cheekbones. Periorbital hyperpigmentation of right eye, onchomycosis of b/l toenails Neuro: Patient seen moving all extremities. Prior to increasing sedation, patient was a GCS E(4) V(NT) M(6). Objective Labs 01/24/25 02:48 01/24/25 02:48 Labs: Laboratory Results - last 24 hr 01/22/25 01/22/25 01/22/25 21:49 23:05 23:35 WBC 8.7 RBC 4.50 Hgb 12.8 Hct 41.4 MCV 92 MCH 28.4 MCHC 30.9 L RDW Std Deviation 46.8 H Plt Count 308 Neut % (Auto) 55 Lymph % (Auto) 31 Charles % (Auto) 10 Eos % (Auto) 3 Baso % (Auto) 0 Neut # (Auto) 4.7 Lymph # (Auto) 2.7 Charles # (Auto) 0.9 H Eos # (Auto) 0.3 Baso # (Auto) 0.0 Immature Gran # (Auto) 0.04 H Absolute Nucleated RBC 0.00 Immature Gran % 1 H Nucleated RBC % 0 Puncture Site Left Radial ABG pH 7.21 L ABG pCO2 60 H ABG pO2 155 H ABG HCO3 24 ABG O2 Saturation 99 H ABG Base Excess -5 L FiO2 100 Sodium 146 H Potassium 4.0 Chloride 108 H Carbon Dioxide 26.5 Anion Gap 12 BUN 26 H Creatinine 1.4 H Estim Creat Clear Calc Not Performed. eGFR 41 L BUN/Creatinine Ratio 19 Glucose 103 Calculated Osmolality 295 Lactic Acid Calcium 9.1 Corrected Calcium 9.1 Phosphorus Magnesium Total Bilirubin 0.2 L AST 16 ALT 17 Alkaline Phosphatase 102 Total Creatine Kinase Total Protein 7.8 Albumin 4.5 Globulin 3.3 Albumin/Globulin Ratio 1.4 Triglycerides Ur Collection Type Urine Color Urine Clarity Urine pH Ur Specific Dennis Urine Protein Urine Glucose (UA) Urine Ketones Urine Blood Urine Nitrite Urine Bilirubin Urine Urobilinogen (Auto) Ur Leukocyte Esterase Urine RBC Urine WBC Ur Squamous Epith Cells Urine Bacteria Hyaline Casts Ur Culture Indicated? Urine Opiates Screen Urine Fentanyl Screen Ur Barbiturates Screen U Amphetamin/Meth Scrn U Benzodiazepines Scrn U Cocaine Metab Screen U Marijuana (THC) Screen SARS-CoV-2 Ag (Rapid) Negative Blood Type Antibody Screen Blood Bank Wristband ID 01/22/25 01/22/25 01/23/25 23:37 23:56 00:50 WBC RBC Hgb Hct MCV MCH MCHC RDW Std Deviation Plt Count Neut % (Auto) Lymph % (Auto) Charles % (Auto) Eos % (Auto) Baso % (Auto) Neut # (Auto) Lymph # (Auto) Charles # (Auto) Eos # (Auto) Baso # (Auto) Immature Gran # (Auto) Absolute Nucleated RBC Immature Gran % Nucleated RBC % Puncture Site Right Radial ABG pH 7.20 L ABG pCO2 65 H ABG pO2 92 D ABG HCO3 24 ABG O2 Saturation 95 ABG Base Excess -6 L FiO2 75 Sodium Potassium Chloride Carbon Dioxide Anion Gap BUN Creatinine Estim Creat Clear Calc eGFR BUN/Creatinine Ratio Glucose Calculated Osmolality Lactic Acid Calcium Corrected Calcium Phosphorus Magnesium Total Bilirubin AST ALT Alkaline Phosphatase Total Creatine Kinase Total Protein Albumin Globulin Albumin/Globulin Ratio Triglycerides Ur Collection Type Clean Catch Urine Color Lt-Yellow Urine Clarity Clear Urine pH 5.5 Ur Specific Dennis 1.022 Urine Protein 1+ A Urine Glucose (UA) Negative Urine Ketones Negative Urine Blood Negative Urine Nitrite Negative Urine Bilirubin Negative Urine Urobilinogen (Auto) Negative Ur Leukocyte Esterase Positive Urine RBC 3 Urine WBC 4 Ur Squamous Epith Cells 1 Urine Bacteria None Hyaline Casts < 1 Ur Culture Indicated? Not Indicated Urine Opiates Screen Negative Urine Fentanyl Screen Negative Ur Barbiturates Screen Negative U Amphetamin/Meth Scrn Positive A U Benzodiazepines Scrn Negative U Cocaine Metab Screen Negative U Marijuana (THC) Screen Negative SARS-CoV-2 Ag (Rapid) Blood Type O Positive Antibody Screen NEGATIVE Blood Bank Wristband ID Yes 01/23/25 01/23/25 01/23/25 01:20 04:35 05:25 WBC 15.1 H D RBC 4.14 Hgb 11.8 L Hct 38.3 MCV 93 MCH 28.5 MCHC 30.8 L RDW Std Deviation 47.4 H Plt Count 330 Neut % (Auto) 91 H Lymph % (Auto) 6 L Charles % (Auto) 2 Eos % (Auto) 0 Baso % (Auto) 0 Neut # (Auto) 13.8 H Lymph # (Auto) 0.9 L Charles # (Auto) 0.4 Eos # (Auto) 0.0 Baso # (Auto) 0.0 Immature Gran # (Auto) 0.08 H Absolute Nucleated RBC 0.00 Immature Gran % 1 H Nucleated RBC % 0 Puncture Site Left Radial ABG pH 7.30 L D ABG pCO2 49 H D ABG pO2 114 H D ABG HCO3 24 ABG O2 Saturation 94 ABG Base Excess -3 FiO2 60 Sodium 145 Potassium 4.2 Chloride 110 H Carbon Dioxide 22.2 Anion Gap 13 BUN 29 H Creatinine 1.4 H Estim Creat Clear Calc 38.4 L eGFR 41 L BUN/Creatinine Ratio 21 H Glucose 179 H D Calculated Osmolality 298 H Lactic Acid 2.7 H 3.5 H Calcium 8.7 Corrected Calcium 8.7 Phosphorus 2.1 L Magnesium 1.3 L Total Bilirubin 0.2 L AST 15 ALT 17 Alkaline Phosphatase 89 Total Creatine Kinase 61 Total Protein 7.0 Albumin 4.1 Globulin 2.9 Albumin/Globulin Ratio 1.4 Triglycerides 77 Ur Collection Type Urine Color Urine Clarity Urine pH Ur Specific Dennis Urine Protein Urine Glucose (UA) Urine Ketones Urine Blood Urine Nitrite Urine Bilirubin Urine Urobilinogen (Auto) Ur Leukocyte Esterase Urine RBC Urine WBC Ur Squamous Epith Cells Urine Bacteria Hyaline Casts Ur Culture Indicated? Urine Opiates Screen Urine Fentanyl Screen Ur Barbiturates Screen U Amphetamin/Meth Scrn U Benzodiazepines Scrn U Cocaine Metab Screen U Marijuana (THC) Screen SARS-CoV-2 Ag (Rapid) Blood Type Antibody Screen Blood Bank Wristband ID 01/23/25 01/23/25 08:25 13:02 WBC RBC Hgb Hct MCV MCH MCHC RDW Std Deviation Plt Count Neut % (Auto) Lymph % (Auto) Charles % (Auto) Eos % (Auto) Baso % (Auto) Neut # (Auto) Lymph # (Auto) Charles # (Auto) Eos # (Auto) Baso # (Auto) Immature Gran # (Auto) Absolute Nucleated RBC Immature Gran % Nucleated RBC % Puncture Site ABG pH ABG pCO2 ABG pO2 ABG HCO3 ABG O2 Saturation ABG Base Excess FiO2 Sodium Potassium Chloride Carbon Dioxide Anion Gap BUN Creatinine Estim Creat Clear Calc eGFR BUN/Creatinine Ratio Glucose Calculated Osmolality Lactic Acid 4.7 H* Cancelled Calcium Corrected Calcium Phosphorus Magnesium Total Bilirubin AST ALT Alkaline Phosphatase Total Creatine Kinase Total Protein Albumin Globulin Albumin/Globulin Ratio Triglycerides Ur Collection Type Urine Color Urine Clarity Urine pH Ur Specific Dennis Urine Protein Urine Glucose (UA) Urine Ketones Urine Blood Urine Nitrite Urine Bilirubin Urine Urobilinogen (Auto) Ur Leukocyte Esterase Urine RBC Urine WBC Ur Squamous Epith Cells Urine Bacteria Hyaline Casts Ur Culture Indicated? Urine Opiates Screen Urine Fentanyl Screen Ur Barbiturates Screen U Amphetamin/Meth Scrn U Benzodiazepines Scrn U Cocaine Metab Screen U Marijuana (THC) Screen SARS-CoV-2 Ag (Rapid) Blood Type Antibody Screen Blood Bank Wristband ID ABG Interpretation ABG results: 01/22/25 01/23/25 01/23/25 23:05 00:50 04:35 ABG pH 7.21 L 7.20 L 7.30 L D ABG pCO2 60 H 65 H 49 H D ABG pO2 155 H 92 D 114 H D ABG HCO3 24 24 24 ABG O2 Saturation 99 H 95 94 ABG Base Excess -5 L -6 L -3 Quality Measures Quality Measures none Advance care planning discussed with:: other Assessment & Plan Assessment Current Active Medications: Generic Name Dose Route Start Last Admin Trade Name Freq PRN Reason Stop Dose Admin Diphenhydramine HCl 50 mg 01/23/25 06:00 01/23/25 12:24 Diphenhydramine Inj 50 Mg/Ml Vial IVP 02/22/25 05:59 50 mg Q6HR IVANA Administration Famotidine 20 mg 01/23/25 09:00 01/23/25 08:04 Famotidine Inj 10 Mg/Ml Vial 2 Ml IVP 02/22/25 08:59 20 mg BID IVANA Administration Propofol 1,000 mg in 100 mls @ 3.099 mls/hr 01/22/25 22:16 01/23/25 10:53 Diprivan Ivpb IV 02/21/25 22:15 35 mcg/kg/min .Q24H PRN 21.693 mls/hr PER PROTOCOL Administration Protocol 5 MCG/KG/MIN Fentanyl Citrate 2,500 mcg in 250 mls @ 2.5 mls/hr 01/23/25 00:33 01/23/25 11:00 Sublimaze Inj 2,500 Mcg/250 Ml Bag IV 01/28/25 00:32 75 mcg/hr .Q24H PRN 7.5 mls/hr PER PROTOCOL Titration Protocol 25 MCG/HR Methylprednisolone Sodium Succinate 60 mg 01/23/25 10:15 01/23/25 10:26 Methylprednisolone Sod Succ 40 Mg/Ml Vial IVP 01/30/25 10:14 60 mg BID IVANA Administration Non-Formulary Medication 30 mg 01/23/25 06:01 Icatibant SC 01/23/25 06:02 X1 ONE Sodium Chloride 3 ml 01/22/25 22:34 Sodium Chloride Rt Janelle 0.9% 3 Ml Nebu INH 02/21/25 22:33 PRN PRN SOLN Plan Ms. Garg is a 69-year-old female with past medical history significant for cirrhosis secondary to alcohol use, hepatitis C, hypertension, COPD, chronic kidney disease presented to the ED with excessive tongue swelling on 02/01/2025 and admitted to ICU for further management of patient with anaphylactic shock. Patient is improving, will stay on vent over 24 hours with prop and fent for sedation and methylprednisone 60mg IV BID. NEURO #Obstructive Airway Patient intubated for airway protection and acute hypoxia. Per ER staff, patient was a GCS 15 with the exception of unable to produce speech d/t her massive lingual edema. -Propofol and Fentanyl infusion to RAAS -3 -Daily sedation holiday as tolerated -Extubate once patient's swelling resolves #Restless Leg Syndrome Patient takes home Pramipexole. -Consider alternative treatment as it increases risk for angioedema. CARDIO #Shock Patient most likely has distributive shock from anaphylaxis 2/2 histamine release. Patient had a burrito made of ground beef, cheese, and sour cream, and shortly after experienced worsening massive lingual edema. Patient received racemic epinephrine x 2, Benadryl, Decadron, p.o. Compazine, and subcu epi, and started on epinephrine drip patient swelling somewhat decreased in order to intubate patient to protect her airway. Patient has had two episodes in the past treated w/ antihistamines and epinephrine shots. DDx: Recurrent angioedema, alpha-gal, allergic reaction Given hx of recurrent episodes, possible food triggered IgE mediated anaphylaxis (less likely, no eosinophilia), bradykinin-mediated angioedema. Patient takes home Lisinopril and pramipexole. -Epinephrine infusion, titrate to MAP >65, can wean and turn off until symptoms resolve as patient is HDS, currently at 0.05mcg/min, dropped rate to 0.025 and increased back to 0.05, starting rate for Epi, currently off. -Continue to monitor BP, and add more pressor support if BP drops below goal perfusion -Continuous cardiac monitoring -Trend Lactic acid -Hold off antihypertensives -Decadron 10mg QD x 1 given, consider giving another dose in 24 hours -Famotidine IV (H2) and Benadryl Q6HR (H1) ordered as adjunctive therapy to anaphylaxis -Ordered Icartibant 30mg SC, competitive antagonist of the bradykinin B2 receptor, however not available at pharmacy -S/p extubation, patient would benefit from actively recalling exactly what she consumed prior to anaphylaxis -Ordered send out labs: Tryptase ordered for recurrent and severe anaphylaxis, as well as C1 esterase inhibitor, and Complement C4 to rule our Hereditary Angioedema -Patient will need to be discharged with an Epi pen for future anaphylactic episodes #Hx of HTN -Hold off antihypertensives, consider increasing amlodipine for BP management and DC lisinopril due to angioedema risks. PULM #Acute hypoxic & hypercapnic respiratory failure 2/2 #Sublingual swelling Patient mainly intubated due to laryngeal edema/tongue swelling, however per ER nurse, patient was brought in EMS via oxymask, unsure how my liters. Per ER physician, patient has swelling well into the largynx, and as result, the biggest ETT that could be placed was 6in. PCO2 of 65 on recent ABG CXR showed Bilateral perihilar bibasilar pneumonia, significant pneumonia left base, possible left pleural fluid, tracheal tube tip 3 cm above rafaela, and moderate vascular congestion. Less likely to be infectious, since daughters brought patient after an allergic reaction, and didn't state any other complaints she had around the incident. -ACVC, 7ml/kg, VT 320, RR 28, FiO2 60, PEEP 5 wean as tolerated, -Consider scheduled albuterol or racemic epi neb if bronchospasm -Airway edema protection with Dexamethasone 10mg x1, received x 1 dose 21:45 01/22/25 -Methylprednisone 60mg IVP BID -Extubation once airway edema improves, will plan for 24 hours to prevent biphasic reaction. #Hx of COPD Patient has a history of smoking, currently is a 5pack-year hx. No wheezing noted on PE. Patient doesn't use any home COPD medications , and unsure when she used her last rescue inhaler -Patient received Dexamethasone 10mg x1 01/22/25, can continue daily to help w/airway edema GI/FEN #GI Prophylaxis -Famotidine 20mg IV QD #Hx of Hepatitis C-stable Patient's daughter states that she was treated in the past. #History of Cirrhosis-stable Patient has a hx of heavy EtOH use in the past. Does not appear to be in acute decompensated liver disease RENAL #Respiratory acidosis -improving Post intubation settings - patient has a pH of 7.2, PCO2 of 65, and HCO3 24. Patient appears to have persistent primary respiratory acidosis despite changing RR from 18 to 24 Patient could have higher airway resistance d/t smaller ETT Repeat ABG pH of 7.3, PCO2 49, and HCO3 24, Ti was also decreased prior to his ABG check -F/u repeat ABG -RT to f/u and suction for any secretions -Check for any air trapping, and consider increasing inspiratory flow rate -Possible albuteral nebulization or racemic epinephrine if upper airway edema compressing tube #[id number] Patient's family states that she has a history of kidney injury. Compared to her baseline Cr 3 years ago, her creatinine is 1.5. It could be simply her new baseline now vs MOLLY vs CKD. -Monitor UO -Avoid nephrotoxic agents -F/u BMP HEME/ONC #Leukocytosis WBC 15.1 Most likely reactive from anaphylaxis and epinephrine/steroids causing neutrophil demargination. Plan: -CTM #Lactic Acidosis Secondary to anaphylaxis, difficulty clearing due to history of cirrhosis. Plan: -1L IVF -CTM ENDO no active issues ID no active issues MSK no active issues PSYCH #Polysubstance use Patient is a meth user, but unsure if patient used recently. Utox positive for Meth. -Consult rn social services for outpatient resources -Tobacco counselling cessation #Psychotic disorder #MDD Patient takes home Venlafaxine and Olanzapine. -Restart when patient is extubated, and passes speech eval DERM #Bed Bugs Family reports bed bugs at home. No bugs seen on phyiscal exam. Plan: -Contact precautions in Health Maintenance: DVT prophylaxis: SCDs GI prophylaxis: Famotidine 20 IV Diet: NPO Baird: Yes Lines: PIV Drips: Propofol, Fentanyl, Vent: Tidal volume 320 @7ml/kg, RR 28, FiO2 25, PEEP 5 CODE STATUS: Full code Disposition: Admitted to ICU for Anaphylaxis and AHHRF requiring intubation. Patient seen and reviewed with attending Dr. Escamilla and supervising resident Dr. Swathi Rivera. Note written by Josue Copeland MD PGY-1 Attending Provider Attestation/Addendum Patient seen and examined. Discussed with resident. In brief this is 69-year-old female who presented to the ER overnight for tongue swelling. Apparently she has had 2 or 3 episodes of this happen before. In the past she was treated with Benadryl and a H2 aubree. On presentation she had significant swelling of her tongue left greater than right side with some shortness of breath. She was intubated for airway protection and angioedema. On physical exam she is intubated and sedated on propofol and fentanyl. Pupils are equal reactive sclera is anicteric oral mucosas hydrated, ET tube and OG tube are in place, lungs are clear to auscultation, heart rate is regular and rhythmic, obese body habitus, abdomen is soft and nontender, pulses are palpable with no clubbing or cyanosis of the digits. She was given epi in the ER and for some borderline blood pressure was started on epi drip as well.. This morning she is hemodynamically stable and able to come down on the epi. There is still some tongue swelling present therefore will remain intubated and sedated for today. Will continue steroids, Benadryl and Pepcid. We will follow-up on her ABG, chest x-ray and adjust vent as needed. Case discussed with ICU team Labs, imaging and records reviewed Approximately 40 critical care minutes required evaluation, exam, review, dimension, discussion formulation of plan of care for this critically ill patient with anaphylaxis at high risk for further and ongoing decompensation
[2025-01-23 13:53] LABS: Lactate (Lactic Acid) 1.3 mMol/L (0.4-2.0)
--- NOTE | 2025-01-23 15:36 | PC.DIETICIAN ---
Nutrition prescription If EN is indicated, consider: Vital 1.2 at 20 ml/hr via OG tube by pump. Advance 10 ml every 8 hrs to goal rate of 40 ml/hr x 24 hrs. If no IV fluids, water flushes of 25 ml/hr (or per MD).
--- NOTE | 2025-01-23 19:37 | XR_ITS ---
EXAMINATION: AP chest single view TECHNIQUE: AP portable supine chest single view Date and time: January 23, 2025, 1952 hours, comparison January 22, 2025 INDICATIONS: Hypoxic respiratory failure shortness of breath today. FINDINGS: Bibasilar pneumonia Mild enlargement cardiac contour with prominent vascular congestion Endotracheal tube tip 3 cm above rafaela Moderate osteopenia IMPRESSION: Bibasilar pneumonia Suspicious for mild heart failure
[2025-01-23 20:27] LABS: Lactate (Lactic Acid) 1.5 mMol/L (0.4-2.0)
[2025-01-23] MEDS: MIDAZOLAM INJ 1 MG/ML VIAL 2 ML 2 MG IVP (20:47)
[2025-01-24] VITALS (59 sets, daily range): BP systolic 127–176; BP diastolic 65–107; PULSE 59–110; RESP 11–41; TEMP 35.9–37; O2SAT 93–99; BMI 52.0
[2025-01-24] MEDS: PROPOFOL 1,000 MG IVPB 1,000 MG/100 ML VIAL 27.891 MG IV ×2 (01:24→05:32)
[2025-01-24 03:02] LABS: Lactate (Lactic Acid) 1.3 mMol/L (0.4-2.0)
[2025-01-24 03:04] LABS: Basophils # (Auto) 0.0 Thou/mm3 (0.0-0.2); Basophils % (Auto) 0 % (0-2.5); Eosinophils # (Auto) 0.0 Thou/mm3 (0.0-0.5); Eosinophils % (Auto) 0 % (0-10); Hematocrit 36.5 % (36.0-46.0); Hemoglobin 11.6 g/dL (12.0-16.0); Immature Granulocytes Auto 0.05 Thou/mm3 (0.00-0.00); Lymphocytes # (Auto) 0.9 Thou/mm3 (1.0-4.8); Lymphocytes % (Auto) 7 % (10-50); Mean Corpuscular HGB Conc 31.8 g/dl (31.0-37.0); Mean Corpuscular Hemoglobin 28.7 pg (25.0-35.0); Mean Corpuscular Volume 90 fL (80-100); Monocytes # (Auto) 0.2 Thou/mm3 (0.0-0.8); Monocytes % (Auto) 2 % (0-12); Neutrophils # (Auto) 11.7 Thou/mm3 (1.8-7.7); Neutrophils % (Auto) 91 % (37-80); Nucleated Red Blood Cell # 0.00 Thou/mm3 (0.00-0.00); Nucleated Red Blood Cell % 0 /100 WBC (0); Platelet Count 250 Thou/mm3 (140-440); RDW Standard Deviation 45.6 fL (36.4-46.3); Red Blood Count 4.04 Miln/mm3 (4.00-5.20); White Blood Count 12.8 Thou/mm3 (3.6-11.0)
[2025-01-24 03:24] LABS: Alanine Aminotransferase 14 U/L (10-49); Albumin, Serum 3.9 gm/dL (3.4-4.8); Albumin/Globulin Ratio 1.5 (1.2-2.2); Alkaline Phosphatase 81 U/L (46-116); Anion Gap 10 (7-16); Aspartate Amino Transferase 12 U/L (0-34); BUN/Creatinine Ratio 25 Ratio (12-20); Bilirubin,Total 0.2 mg/dL (0.3-1.2); Blood Urea Nitrogen 27 mg/dL (9-23); Calcium 8.8 mg/dL (8.3-10.6); Calcium (Corrected) 8.9 mg/dL (8.5-10.1); Carbon Dioxide 21.8 mMol/L (20.0-31.0); Chloride 110 mMol/L (98-107); Creatinine (Component) 1.1 mg/dL (0.6-1.3); Estimated Creatinine Clearance 48.8 mL/min (>60); Globulin 2.6 gm/dL (2.3-3.5); Glucose 152 mg/dL (74-106); Magnesium 2.2 mg/dL (1.6-2.6); Osmolality,Calculated 291 (275-295); Phosphorous 3.5 mg/dL (2.4-5.1); Potassium 4.2 mMol/L (3.4-5.1); Sodium 142 mMol/L (136-145); Total Protein 6.5 gm/dL (5.7-8.2); eGFR 55 See Note
[2025-01-24] MEDS: fentaNYL 2,500 MCG/250 ML BAG 2,500 MCG/250 ML BAG 12.5 MCG IV (04:14)
[2025-01-24 05:24] LABS: Base Excess -3 (-3-3); HCO3 23 mEq/L (20-26); Inspired Oxygen, FIO2 21 %; O2 Saturation 94 % (91-98); PCO2 39 mmHg (32.0-48.0); PO2 75 mmHg (83-108); pH, Arterial 7.37 (7.35-7.45)
[2025-01-24 05:27] LABS: Allen Test Performed/OK; Puncture Site Right Radial
[2025-01-24] MEDS: FAMOTIDINE INJ 10 MG/ML VIAL 2 ML 20 MG IVP ×2 (08:13→20:29)
[2025-01-24 09:01] LABS: Basophils # (Auto) 0.0 Thou/mm3 (0.0-0.2); Basophils % (Auto) 0 % (0-2.5); Eosinophils # (Auto) 0.0 Thou/mm3 (0.0-0.5); Eosinophils % (Auto) 0 % (0-10); Hematocrit 36.9 % (36.0-46.0); Hemoglobin 11.9 g/dL (12.0-16.0); Immature Granulocytes Auto 0.07 Thou/mm3 (0.00-0.00); Lymphocytes # (Auto) 1.1 Thou/mm3 (1.0-4.8); Lymphocytes % (Auto) 7 % (10-50); Mean Corpuscular HGB Conc 32.2 g/dl (31.0-37.0); Mean Corpuscular Hemoglobin 28.7 pg (25.0-35.0); Mean Corpuscular Volume 89 fL (80-100); Monocytes # (Auto) 0.4 Thou/mm3 (0.0-0.8); Monocytes % (Auto) 3 % (0-12); Neutrophils # (Auto) 13.3 Thou/mm3 (1.8-7.7); Neutrophils % (Auto) 89 % (37-80); Nucleated Red Blood Cell # 0.00 Thou/mm3 (0.00-0.00); Nucleated Red Blood Cell % 0 /100 WBC (0); Platelet Count 279 Thou/mm3 (140-440); RDW Standard Deviation 45.6 fL (36.4-46.3); Red Blood Count 4.15 Miln/mm3 (4.00-5.20); White Blood Count 15.0 Thou/mm3 (3.6-11.0)
[2025-01-24 09:21] LABS: INR 1.0 (0.9-1.3); Partial Thromboplastin Time 24.7 Seconds (22.0-36.0); Prothrombin Time 10.7 Seconds (9.0-12.2)
[2025-01-24 09:23] LABS: Alanine Aminotransferase 15 U/L (10-49); Albumin, Serum 4.0 gm/dL (3.4-4.8); Albumin/Globulin Ratio 1.3 (1.2-2.2); Alkaline Phosphatase 86 U/L (46-116); Anion Gap 11 (7-16); Aspartate Amino Transferase 15 U/L (0-34); BUN/Creatinine Ratio 24 Ratio (12-20); Bilirubin,Total 0.2 mg/dL (0.3-1.2); Blood Urea Nitrogen 29 mg/dL (9-23); Calcium 8.8 mg/dL (8.3-10.6); Calcium (Corrected) 8.8 mg/dL (8.5-10.1); Carbon Dioxide 22.5 mMol/L (20.0-31.0); Chloride 109 mMol/L (98-107); Creatinine (Component) 1.2 mg/dL (0.6-1.3); Estimated Creatinine Clearance 45.8 mL/min (>60); Globulin 3.1 gm/dL (2.3-3.5); Glucose 149 mg/dL (74-106); Magnesium 2.3 mg/dL (1.6-2.6); Osmolality,Calculated 291 (275-295); Phosphorous 4.5 mg/dL (2.4-5.1); Potassium 4.2 mMol/L (3.4-5.1); Sodium 142 mMol/L (136-145); Total Protein 7.1 gm/dL (5.7-8.2); Triglycerides 127 mg/dL (30-150); eGFR 50 See Note
--- NOTE | 2025-01-24 10:41 | ESPR_ITS ---
<Statement entered by Swathi Rivera MD - 01/24/25 18:27> I have reviewed the note and agree with the resident's assessment & plan with exceptions as below. I have personally reviewed labs, imaging, home meds/prior records, examined the patient, formulated and discussed management plan with the IM team. Patient examined at bedside today. Patient had propofol, and fentanyl turned off, passed spontaneous breathing trial. Patient was then shortly extubated. Patient was started on permethrin for suspected lice. Patient will be downgraded to hospitalist team for further management. We recommend that patient will need to follow-up with an ip attorney, and stop ACEs and ARB's and Pramipexole due to suspected side effect of angioedema. Started patient on CPT, breathing treatments due to concern for congestion after extubation. Swathi Rivera, PGY-2 Internal Medicine Documentation for date of: 01/24/25 Subjective Subjective Interval history: Ms. Garg is a 69-year-old female with past medical history significant for cirrhosis secondary to alcohol use, hepatitis C, hypertension, COPD, chronic kidney disease presented to the ED with excessive tongue swelling on 02/01/2025. Per patient's daughters, last well-known time was 6 PM. She was seen in the ED and a burrito her friend made which included ground beef chorizo, sour cream and cheese for the first time. Around 7 PM, patient told her daughter who just had came home, that she felt like she was chewing her tongue, while eating her burrito. Around 7:30 PM, her daughter gave her 2 Benadryl and loratadine, however patient's swelling of her tongue and face continued to increase in size, and decided to call the ambulance at 9:42 PM. Of note, patient has had her first episode of tongue swelling on 06/01/2023 where she was then seen by her regular doctor and was treated with loratadine and Banophen, which seem to have resolved her symptoms shortly after. She had another episode on 10/31/2024 where her face was swollen, and was given epi shot, and symptoms shortly resolved. Past medical history: As mentioned above Past surgical history: Bilateral knee surgeries years ago Meds: Patient takes olanzapine 20 mg daily, lisinopril/hydrochlorothiazide 20?25mg, Effexor 37.5 milligrams daily, pramipexole 0.5 mg twice daily, amlodipine 5 mg daily. Per daughter, patient tries to take all her medications daily however does forget at times. Social history: Patient lives with her daughter. Is a current smoker, smokes 10 cigarettes a day for the last 10 years, severe drinker in the past, but quit about 20 years ago, and has used meth in the past, but daughters are unsure when her last meth use was. Family history: Unknown as patient was adopted Allergies: Per patient's daughters NKDA up to now ED course: After coming into the ED, patient initially seen with 4+ sublingual swelling along with massive lingual edema, minimally stridorous, requiring oxymask. Per ER doctor, patient's tongue was swollen and touching the upper palate. ED vitals 139/98, HR 93, RR 16, Temp 98.4F, on Oxymask, unsure how many liters. After being given racemic epinephrine x 2, Benadryl, Decadron, p.o. Compazine, and subcu epi, and started on epinephrine drip patient swelling somewhat decreased in order to intubate patient to protect her airway. Patient has a 6 inch ET tube with 7 mL/kg vent settings, started on propofol drip. CXR showed Bilateral perihilar bibasilar pneumonia, significant pneumonia left base, possible left pleural fluid, tracheal tube tip 3 cm above rafaela, and moderate vascular congestion. ICU was consulted for further management of patient with anaphylactic shock. 01/23/2025 Patient examined bedside. Currently on propofol 40 and fentanyl 75 intubated an echo was done bedside showed good contractility of the heart patient GCS she was able to open eyes and follow commands intubation prevented her from speaking. The family informed interviewers that patient has bedbugs at home contact precautions have been placed her ABG showed improved respiratory acidosis her UDS came back positive for meth she had her phosphorus and magnesium repleted. Pharmacy spoke to resident and recommends holding Icatibant, since it is only useful in the acute phase. They also recommend holding ACEi and ropinole due to risk for angioedema, and recommend potentially increasing amlodipine for blood pressure management. 01/24/2025 Overnight the repeat lactic acid trended down to 1.3 ABG showed pH of 7.37 pCO2 of 39 he was given Versed the RASS score of +1 propofol 45 fent to 125 Today upon examination patient passed her spontaneous breathing trial and extubated. Her ins and outs for the day are 24 hours at 1.1 L out without bowel movements and I inspected the urine bag was 200 mL of yellow urine. Her tongue swelling is improved. We recommend following up with an wood heel flap rubber for testing. Continuin methylprednisone but decrease it to daily and then stop tomorrow. she has worsening rhonchi on exam getting her chest PT and suction as well as DuoNebs Q6. Her creatinine went down to 1.1 possibly making this an MOLLY since her baseline was thought to be 1.5. For her bedbugs will get a give her primethoprim. I will start her diet as renal pending swallow eval. Exam Vital Signs Temp Pulse Resp BP Pulse Ox O2 Del Method FiO2 96.7 F L 60 21 H 146/88 H 97 Mechanical Ventilation 35 01/24/25 04:01 01/24/25 06:16 01/23/25 03:00 01/24/25 06:16 01/24/25 06:16 01/23/25 01:40 01/24/25 06:00 Narrative Exam General Appearance: Extubated tongue is swollen but majorly improved, no longer obstructing airway or a concern to obstruct airway, normal pink coloration HEENT: NC/AT, no scleral icterus, no conjunctival pallor, MMM, PERRLA, spontaneously opens her eyes Lungs: Minor wheezes or +Rhonchi CVS: RRR, S1/S2 heard, no murmurs or rubs appreciated ABD: Soft, obese non-tender, non-distended, BS + in all 4 quadrants EXT: skin bronzing from chronic venous stasis, radial pulses 2+ BL, DP pulses 2 + BL, grade 1 bilateral non-pitting edema SKIN: Mild erythematous rash seen scattered mostly around her anabaptist and cheekbones. Periorbital hyperpigmentation of right eye, onchomycosis of b/l toenails Neuro: Patient seen moving all extremities. Prior to increasing sedation, patient was a GCS E(4) V(5) M(6). Objective Labs 01/24/25 08:23 01/24/25 08:23 Labs: Laboratory Results - last 24 hr 01/23/25 01/23/25 01/23/25 13:02 13:43 20:18 WBC RBC Hgb Hct MCV MCH MCHC RDW Std Deviation Plt Count Neut % (Auto) Lymph % (Auto) [place] % (Auto) Eos % (Auto) Baso % (Auto) Neut # (Auto) Lymph # (Auto) [place] # (Auto) Eos # (Auto) Baso # (Auto) Immature Gran # (Auto) Absolute Nucleated RBC Immature Gran % Nucleated RBC % PT INR APTT Puncture Site ABG pH ABG pCO2 ABG pO2 ABG HCO3 ABG O2 Saturation ABG Base Excess FiO2 Sodium Potassium Chloride Carbon Dioxide Anion Gap BUN Creatinine Estim Creat Clear Calc eGFR BUN/Creatinine Ratio Glucose Calculated Osmolality Lactic Acid Cancelled 1.3 1.5 Calcium Corrected Calcium Phosphorus Magnesium Total Bilirubin AST ALT Alkaline Phosphatase Total Protein Albumin Globulin Albumin/Globulin Ratio Triglycerides 01/24/25 01/24/25 01/24/25 02:48 05:08 08:23 WBC 12.8 H 15.0 H RBC 4.04 4.15 Hgb 11.6 L 11.9 L Hct 36.5 36.9 MCV 90 89 MCH 28.7 28.7 MCHC 31.8 32.2 RDW Std Deviation 45.6 45.6 Plt Count 250 D 279 Neut % (Auto) 91 H 89 H Lymph % (Auto) 7 L 7 L [place] % (Auto) 2 3 Eos % (Auto) 0 0 Baso % (Auto) 0 0 Neut # (Auto) 11.7 H 13.3 H Lymph # (Auto) 0.9 L 1.1 [place] # (Auto) 0.2 0.4 Eos # (Auto) 0.0 0.0 Baso # (Auto) 0.0 0.0 Immature Gran # (Auto) 0.05 H 0.07 H Absolute Nucleated RBC 0.00 0.00 Immature Gran % 0 1 H Nucleated RBC % 0 0 PT 10.7 INR 1.0 APTT 24.7 Puncture Site Right Radial ABG pH 7.37 ABG pCO2 39 D ABG pO2 75 L D ABG HCO3 23 ABG O2 Saturation 94 ABG Base Excess -3 FiO2 21 Sodium 142 142 Potassium 4.2 4.2 Chloride 110 H 109 H Carbon Dioxide 21.8 22.5 Anion Gap 10 11 BUN 27 H 29 H Creatinine 1.1 1.2 Estim Creat Clear Calc 48.8 L 45.8 L eGFR 55 L 50 L BUN/Creatinine Ratio 25 H 24 H Glucose 152 H 149 H Calculated Osmolality 291 291 Lactic Acid 1.3 Calcium 8.8 8.8 Corrected Calcium 8.9 8.8 Phosphorus 3.5 4.5 Magnesium 2.2 2.3 Total Bilirubin 0.2 L 0.2 L AST 12 15 ALT 14 15 Alkaline Phosphatase 81 86 Total Protein 6.5 7.1 Albumin 3.9 4.0 Globulin 2.6 3.1 Albumin/Globulin Ratio 1.5 1.3 Triglycerides 127 ABG Interpretation ABG results: 01/22/25 01/23/25 01/23/25 23:05 00:50 04:35 ABG pH 7.21 L 7.20 L 7.30 L D ABG pCO2 60 H 65 H 49 H D ABG pO2 155 H 92 D 114 H D ABG HCO3 24 24 24 ABG O2 Saturation 99 H 95 94 ABG Base Excess -5 L -6 L -3 01/24/25 05:08 ABG pH 7.37 ABG pCO2 39 D ABG pO2 75 L D ABG HCO3 23 ABG O2 Saturation 94 ABG Base Excess -3 Quality Measures Quality Measures VTE prophylaxis Advance care planning discussed with:: other Assessment & Plan Assessment Current Active Medications: Generic Name Dose Route Start Last Admin Trade Name Freq PRN Reason Stop Dose Admin Diphenhydramine HCl 50 mg 01/23/25 06:00 01/24/25 05:03 Diphenhydramine Inj 50 Mg/Ml Vial IVP 02/22/25 05:59 50 mg Q6HR IVANA Administration Famotidine 20 mg 01/23/25 09:00 01/24/25 08:13 Famotidine Inj 10 Mg/Ml Vial 2 Ml IVP 02/22/25 08:59 20 mg BID IVANA Administration Propofol 1,000 mg in 100 mls @ 3.099 mls/hr 01/22/25 22:16 01/24/25 07:48 Diprivan Ivpb IV 02/21/25 22:15 0 mcg/kg/min .Q24H PRN 0 mls/hr PER PROTOCOL Titration Protocol 5 MCG/KG/MIN Fentanyl Citrate 2,500 mcg in 250 mls @ 2.5 mls/hr 01/23/25 00:33 01/24/25 07:48 Sublimaze Inj 2,500 Mcg/250 Ml Bag IV 01/28/25 00:32 0 mcg/hr .Q24H PRN 0 mls/hr PER PROTOCOL Titration Protocol 25 MCG/HR Methylprednisolone Sodium Succinate 60 mg 01/25/25 09:00 Methylprednisolone Sod Succ 40 Mg/Ml Vial IVP 02/01/25 08:59 QDAY IVANA Non-Formulary Medication 30 mg 01/23/25 06:01 Icatibant SC 01/23/25 06:02 X1 ONE Sodium Chloride 3 ml 01/22/25 22:34 Sodium Chloride Rt Janelle 0.9% 3 Ml Nebu INH 02/21/25 22:33 PRN PRN SOLN Plan Ms. Garg is a 69-year-old female with past medical history significant for cirrhosis secondary to alcohol use, hepatitis C, hypertension, COPD, chronic kidney disease presented to the ED with excessive tongue swelling on 02/01/2025 and admitted to ICU for further management of patient with anaphylactic shock. Patient is improving, will stay on vent over 24 hours with prop and fent for sedation and methylprednisone 60mg IV BID. 01/24 patient is now extubated. Recommending follow-up with an wood heel flap rubber. Given her DuoNebs every 6. Now doing methylprednisone 60 mg daily for today stopping tomorrow. Starting trimethoprim at the present today for bedbugs. After extubation wait 6 hours if patient is stable plan to downgrade. Pending swallow eval beginning diet renal. NEURO #Obstructive Airway - resolved Patient intubated for airway protection and acute hypoxia. Per ER staff, patient was a GCS 15 with the exception of unable to produce speech d/t her massive lingual edema. -Propofol and Fentanyl infusion to RAAS -3 --> off all of sedation and extubated. -Daily sedation holiday as tolerated -Extubate once patient's swelling resolves #Restless Leg Syndrome Patient takes home Pramipexole. -Consider alternative treatment as it increases risk for angioedema. CARDIO #Shock Patient most likely has distributive shock from anaphylaxis 2/2 histamine release. Patient had a burrito made of ground beef, cheese, and sour cream, and shortly after experienced worsening massive lingual edema. Patient received racemic epinephrine x 2, Benadryl, Decadron, p.o. Compazine, and subcu epi, and started on epinephrine drip patient swelling somewhat decreased in order to intubate patient to protect her airway. Patient has had two episodes in the past treated w/ antihistamines and epinephrine shots. DDx: Recurrent angioedema, alpha-gal, allergic reaction Given hx of recurrent episodes, possible food triggered IgE mediated anaphylaxis (less likely, no eosinophilia), bradykinin-mediated angioedema. Patient takes home Lisinopril and pramipexole. -Epinephrine infusion, titrate to MAP >65, can wean and turn off until symptoms resolve as patient is HDS, currently at 0.05mcg/min, dropped rate to 0.025 and increased back to 0.05, starting rate for Epi, currently off. -Continue to monitor BP, and add more pressor support if BP drops below goal perfusion -Continuous cardiac monitoring -Trend Lactic acid - resolved -Hold off antihypertensives -Decadron 10mg QD x 1 given, consider giving another dose in 24 hours -Famotidine IV (H2) and Benadryl Q6HR (H1) ordered as adjunctive therapy to anaphylaxis -Ordered Icartibant 30mg SC, competitive antagonist of the bradykinin B2 receptor, however not available at pharmacy -S/p extubation, patient would benefit from actively recalling exactly what she consumed prior to anaphylaxis -Ordered send out labs: Tryptase ordered for recurrent and severe anaphylaxis, as well as C1 esterase inhibitor, and Complement C4 to rule our Hereditary Angioedema -Patient will need to be discharged with an Epi pen for future anaphylactic episodes -FUP with wood heel flap rubber for testing considering this is patient's 3rd episode of swelling. #Hx of HTN -Hold off antihypertensives, consider increasing amlodipine for BP management and DC lisinopril due to angioedema risks. Pharmacy also recommended not adding ARB since rare occurrences of angioedema. PULM #Acute hypoxic & hypercapnic respiratory failure 2/2 #Sublingual swelling - resolved Patient mainly intubated due to laryngeal edema/tongue swelling, however per ER nurse, patient was brought in EMS via oxymask, unsure how my liters. Per ER physician, patient has swelling well into the largynx, and as result, the biggest ETT that could be placed was 6in. PCO2 of 65 on recent ABG CXR showed Bilateral perihilar bibasilar pneumonia, significant pneumonia left base, possible left pleural fluid, tracheal tube tip 3 cm above rafaela, and moderate vascular congestion. Less likely to be infectious, since daughters brought patient after an allergic reaction, and didn't state any other complaints she had around the incident. -ACVC, 7ml/kg, VT 320, RR 28, FiO2 60, PEEP 5 wean as tolerated, -Consider scheduled albuterol or racemic epi neb if bronchospasm -Airway edema protection with Dexamethasone 10mg x1, received x 1 dose 21:45 01/22/25 -Methylprednisone 60mg IVP BID --> QD (01/24), can DC tomorrow -Extubation once airway edema improves, will plan for 24 hours to prevent biphasic reaction. #Hx of COPD Patient has a history of smoking, currently is a 5pack-year hx. +wheezing and rhonchi noted on PE. Patient doesn't use any home COPD medications , and unsure when she used her last rescue inhaler -Patient received Dexamethasone 10mg x1 01/22/25, can continue daily to help w/airway edema -Duonebs q6 -Chest PT -Suction GI/FEN #GI Prophylaxis -Famotidine 20mg IV QD #Hx of Hepatitis C-stable Patient's daughter states that she was treated in the past. #History of Cirrhosis-stable Patient has a hx of heavy EtOH use in the past. Does not appear to be in acute decompensated liver disease RENAL #Respiratory acidosis -improving Post intubation settings - patient has a pH of 7.2, PCO2 of 65, and HCO3 24. 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 Compared to her baseline Cr 3 years ago, her creatinine is 1.5 --> downtrended to 1.2. -Monitor UO -Avoid nephrotoxic agents -F/u BMP HEME/ONC #Leukocytosis WBC 15.1 Most likely reactive from anaphylaxis and epinephrine/steroids causing neutrophil demargination. Plan: -CTM -Sputum cultures - dirty #Lactic Acidosis - resolved Secondary to anaphylaxis, difficulty clearing due to history of cirrhosis. Plan: -1L IVF -CTM ENDO no active issues ID no active issues MSK no active issues PSYCH #Polysubstance use Patient is a meth user, but unsure if patient used recently. Utox positive for Meth. -Consult social media specialist for outpatient resources -Tobacco counselling cessation #Psychotic disorder #MDD Patient takes home Venlafaxine and Olanzapine. -Restart when patient is extubated, and passes speech eval DERM #Bed Bugs Family reports bed bugs at home. No bugs seen on phyiscal exam. Plan: -Contact precautions in -Permethrin Health Maintenance: DVT prophylaxis: SCDs GI prophylaxis: Famotidine 20 IV Diet: NPO Baird: Yes Lines: PIV Drips: Propofol, Fentanyl, Vent: Tidal volume 320 @7ml/kg, RR 28, FiO2 25, PEEP 5 CODE STATUS: Full code Disposition: Admitted to ICU for Anaphylaxis and AHHRF requiring intubation. Patient seen and reviewed with attending Dr. Escamilla and supervising resident Dr. Swathi Rivera. Note written by Josue Copeland MD PGY-1 Attending Provider Attestation/Addendum Patient seen and examined, discussed with resident team. In brief is a 69-year-old female admitted to the ICU for anaphylaxis and angioedema. She is off of her pressors. Today she appears to be doing much better. The amount of tongue swelling has significantly decreased and appears to be back to normal. Her propofol and fentanyl were stopped and she woke up and responded appropriately. She was transitioned to PSV on the ventilator. She did well and after half an hour weaning parameters were obtained. She had a good NIF she had a cuff leak and she had a decent F/VT therefore she was extubated to room air. Postextubation she is currently doing well she does have some mild expiratory wheezes auscultated on chest exam there is no increased work of breathing. There is no stridor. She does have a cough. Abdomen is soft, nondistended, bowel sounds are present. There is no clubbing, no mottling, pulses palpable. Overall she is currently doing well status post extubation. It is recommended that she follow-up with an wood heel flap rubber given that this is her third episode of angioedema. Currently she is stable for downgrade. Case discussed with ICU team Labs, imaging records reviewed Approximately 40 minutes required evaluation, exam, review, intervention, scheduled family supportive care
[2025-01-24] MEDS: PERMETHRIN CREME RINSE 60 ML BTL TOP (12:17)
[2025-01-24] MEDS: ALBUTEROL/IPRATROPIUM (Duoneb) RT SOL 3 ML NEBU INH ×4 (12:20→22:22)
[2025-01-24] MEDS: ACETYLCYSTEINE RT SOL 10% 4 ML NEBU 3 ML INH ×3 (14:47→22:22)
--- NOTE | 2025-01-24 15:21 | PC.SS ---
SUPERVISING CHEF conducted bedside contact with the patient conduct initial assessment and to discuss discharge planning.? At bedside with patient was daughter, Trupti Eduardo .? Information obtained from patient?s daughter.? Patient resides at home with daughter, Judit Bright .? Patient utilizes a walker to assist with ambulation.? Patient does not utilize home oxygen.? Currently on 3L nasal cannula.? Patient requires assistance with the completion of ADL?s.? Patient?s family assist with ADL completion.? Patient?s PCP is Dr. Kay.? Patient utilizes [facility] for medication services.? If SNF is recommended by physical therapy plan will be to transition patient to SNF at the time of discharge.? No preferred SNF identified.? director outpatient services will assist with transportation at the time of discharge. Patient possesses coverage for transport.? No further discharge needs identified by the patient.? No further intervention required at this time, health and social care teacher will be available to address any further concerns.? Next of Kin: Trupti Pimentelenas D/C Plan: SNF
--- NOTE | 2025-01-24 16:17 | ESPR_ITS ---
<Statement entered by Oneil Kelly MD - 01/24/25 21:10> ICU downgrade. 69-year-old female with history of cirrhosis secondary to alcohol use, chronic HCV, COPD, CKD, hypertension who presented on 01/22 for lingual swelling. Noted to have consumed a homemade burrito and experienced symptoms approximately 30 minutes later. Denies any facial swelling, rash, or itchiness. She was given Benadryl at home without resolution of symptoms and was brought to the ED. In the ED she was given racemic epinephrine, subcutaneous epi, Benadryl, Decadron, and started on epinephrine drip that decreased well in order to intubate for airway protection. She was extubated the following day and then downgraded to floors the day after that. Patient states that she had a similar episode no longer than a year ago for which she presented to an outpatient clinic and was given IM epi that resolved her symptoms. She is noted to have been on an DAPHNIE inhibitor as well as pramipexole that may be etiology of her symptoms. Will continue scheduled every 4 hour DuoNebs with acetylcysteine, scheduled diphenhydramine and famotidine as well as Solu-Medrol. She is saturating 97% on 3 L nasal cannula and other vital signs stable. CBC shows slight increase in leukocytosis but hemoglobin stable. ABG within normal limits. CHEM panel shows resolved MOLLY as well as lactic acidosis but otherwise unremarkable. UTOX noted to be amphetamine positive. ----- Note reviewed and agree with care plan as documented. Please refer to the note below for further details. Plan discussed with attending physician Dr. Justin Kelly MD PGY-2 Internal Medicine Documentation for date of: 01/24/25 Subjective Subjective Interval history: Ms. Garg is a 69-year-old female with past medical history significant for cirrhosis secondary to alcohol use, hepatitis C, hypertension, COPD, chronic kidney disease presented to the ED with excessive tongue swelling on 02/01/2025. Per patient's daughters, last well-known time was 6 PM. She was seen in the ED and a burrito her friend made which included ground beef chorizo, sour cream and cheese for the first time. Around 7 PM, patient told her daughter who just had came home, that she felt like she was chewing her tongue, while eating her burrito. Around 7:30 PM, her daughter gave her 2 Benadryl and loratadine, however patient's swelling of her tongue and face continued to increase in size, and decided to call the ambulance at 9:42 PM. Of note, patient has had her first episode of tongue swelling on 06/01/2023 where she was then seen by her regular doctor and was treated with loratadine and Banophen, which seem to have resolved her symptoms shortly after. She had another episode on 10/31/2024 where her face was swollen, and was given epi shot, and symptoms shortly resolved. Past medical history: As mentioned above Past surgical history: Bilateral knee surgeries years ago Meds: Patient takes olanzapine 20 mg daily, lisinopril/hydrochlorothiazide 20?25mg, Effexor 37.5 milligrams daily, pramipexole 0.5 mg twice daily, amlodipine 5 mg daily. Per daughter, patient tries to take all her medications daily however does forget at times. Social history: Patient lives with her daughter. Is a current smoker, smokes 10 cigarettes a day for the last 10 years, severe drinker in the past, but quit about 20 years ago, and has used meth in the past, but daughters are unsure when her last meth use was. Family history: Unknown as patient was adopted Allergies: Per patient's daughters NKDA up to now ED course: After coming into the ED, patient initially seen with 4+ sublingual swelling along with massive lingual edema, minimally stridorous, requiring oxymask. Per ER doctor, patient's tongue was swollen and touching the upper palate. ED vitals 139/98, HR 93, RR 16, Temp 98.4F, on Oxymask, unsure how many liters. After being given racemic epinephrine x 2, Benadryl, Decadron, p.o. Compazine, and subcu epi, and started on epinephrine drip patient swelling somewhat decreased in order to intubate patient to protect her airway. Patient has a 6 inch ET tube with 7 mL/kg vent settings, started on propofol drip. CXR showed Bilateral perihilar bibasilar pneumonia, significant pneumonia left base, possible left pleural fluid, tracheal tube tip 3 cm above rafaela, and moderate vascular congestion. ICU was consulted for further management of patient with anaphylactic shock. 01/23/2025 Patient examined bedside. Currently on propofol 40 and fentanyl 75 intubated an echo was done bedside showed good contractility of the heart patient GCS she was able to open eyes and follow commands intubation prevented her from speaking. The family informed interviewers that patient has bedbugs at home contact precautions have been placed; her ABG showed improved respiratory acidosis her UDS came back positive for meth she had her phosphorus and magnesium repleted. Pharmacy spoke to resident and recommends holding Icatibant, since it is only useful in the acute phase. They also recommend holding ACEi and ropinole due to risk for angioedema, and recommend potentially increasing amlodipine for blood pressure management. 01/24/2025 Overnight the repeat lactic acid trended down to 1.3 ABG showed pH of 7.37 pCO2 of 39 he was given Versed the RASS score of +1 propofol 45 fent to 125 Today upon examination patient passed her spontaneous breathing trial and extubated. Her ins and outs for the day are 24 hours at 1.1 L out without bowel movements and I inspected the urine bag was 200 mL of yellow urine. Her tongue swelling is improved. We recommend following up with an basket weaver for testing. Continuin methylprednisone but decrease it to daily and then stop tomorrow. she has worsening rhonchi on exam getting her chest PT and suction as well as DuoNebs Q6. Her creatinine went down to 1.1 possibly making this an MOLLY since her baseline was thought to be 1.5. For her bedbugs will get a give her primethoprim. I will start her diet as renal pending swallow eval. BP 01/24/2025: 69 year old female w/ PMH as stated above w/ hospital course above presents as a downgrade from ICU s/p stabilization, extubation. Pt is conversive, resting well in bed without respiratory difficulty. She confirms history of eating a burrito and in 30 minutes her tongue started swelling to which she was taken to the ED and subsequently intubated. Has no endorsed history of allergies but states that tongue swelling has happened before, most recently at her PCP appointment(10/31/2024) to which epinephrine stopped the swelling. Ms. Garg endorses use of her home lisinopril-hydrochlorothiazide use for blood pressure management for 'many years' as well as methamphetamine use, to which she 'eats it' since 1998. Has been taking olanzapine since '1986' for schizophrenia. Has not had previous allergen testing. Ms. Garg confirms a history of COPD to which home oxygen was prescribed to her but is not currently using. Patient is AxOx4 and GCS 15. Physical examination reveals normal neurological exam and a normal, mobile tongue without evidence of edema. Posterior tonsils and soft pallate are visualized, Mallampati 1a during examination. Significant end- expiratory rhonchi and pursed-lipsed breathing is noted on exam, O2 saturation 97% on 3L NC. Pt confirms history of 2x previous tongue swelling to which allergy medications were given and 1x dose of epinephrine(epipen) on the second episode. Does not know what triggered these episodes. History and potential workup for triggers of her angioedema/anaphylaxis via questioning are as follows: Methamphetamine: last use was in AM 01/23, morning before PM admission and intubation Smoking: smokes daily, has smoked 'for awhile' and cannot remember when she started Lisinopril-hydrochlorothiazide: takes daily as prescribed Pramipexole: takes daily for RLS Burrito: beef chorizo, cheese, sour cream, tortilla - does not denote any history of allergies, no rashes to these ingredients On admission, patient remains stable and expresses no obvious concerns. Exam Vital Signs Temp Pulse Resp BP Pulse Ox O2 Del Method O2 Flow Rate 97.9 F 102 H 16 140/86 H 97 Mechanical Ventilation 3 01/24/25 13:01 01/24/25 15:00 01/24/25 15:00 01/24/25 15:00 01/24/25 15:00 01/24/25 08:01 01/24/25 14:47 FiO2 35 01/24/25 08:01 Narrative Exam General: alert and oriented to self/place/year, no acute distress, able to speak full sentences. Obese, cheerful-appearing pt who is pleasant on conversation although a poor historian regarding her symptoms. HEENT: NC/AT, mucous membranes moist, bilateral sclera anicteric. No tongue swelling noted on exam. mobile on exam. Cardiovascular: regular rate and rhythm, S1/S2 present, no murmurs appreciated Pulmonary: end expiratory wheezing/rhonchi on exam Abdominal: soft, nontender, present bowel sounds Musculoskeletal: no peripheral edema; bilateral lower extremities with pigmentation. otherwise warm, well-perfused Skin: Warm, well-perfused Objective Labs 01/25/25 05:17 01/25/25 05:17 Labs: Laboratory Results - last 24 hr 01/23/25 01/24/25 01/24/25 20:18 02:48 05:08 WBC 12.8 H RBC 4.04 Hgb 11.6 L Hct 36.5 MCV 90 MCH 28.7 MCHC 31.8 RDW Std Deviation 45.6 Plt Count 250 D Neut % (Auto) 91 H Lymph % (Auto) 7 L [place] % (Auto) 2 Eos % (Auto) 0 Baso % (Auto) 0 Neut # (Auto) 11.7 H Lymph # (Auto) 0.9 L [place] # (Auto) 0.2 Eos # (Auto) 0.0 Baso # (Auto) 0.0 Immature Gran # (Auto) 0.05 H Absolute Nucleated RBC 0.00 Immature Gran % 0 Nucleated RBC % 0 PT INR APTT Puncture Site Right Radial ABG pH 7.37 ABG pCO2 39 D ABG pO2 75 L D ABG HCO3 23 ABG O2 Saturation 94 ABG Base Excess -3 FiO2 21 Sodium 142 Potassium 4.2 Chloride 110 H Carbon Dioxide 21.8 Anion Gap 10 BUN 27 H Creatinine 1.1 Estim Creat Clear Calc 48.8 L eGFR 55 L BUN/Creatinine Ratio 25 H Glucose 152 H Calculated Osmolality 291 Lactic Acid 1.5 1.3 Calcium 8.8 Corrected Calcium 8.9 Phosphorus 3.5 Magnesium 2.2 Total Bilirubin 0.2 L AST 12 ALT 14 Alkaline Phosphatase 81 Total Protein 6.5 Albumin 3.9 Globulin 2.6 Albumin/Globulin Ratio 1.5 Triglycerides 01/24/25 08:23 WBC 15.0 H RBC 4.15 Hgb 11.9 L Hct 36.9 MCV 89 MCH 28.7 MCHC 32.2 RDW Std Deviation 45.6 Plt Count 279 Neut % (Auto) 89 H Lymph % (Auto) 7 L [place] % (Auto) 3 Eos % (Auto) 0 Baso % (Auto) 0 Neut # (Auto) 13.3 H Lymph # (Auto) 1.1 [place] # (Auto) 0.4 Eos # (Auto) 0.0 Baso # (Auto) 0.0 Immature Gran # (Auto) 0.07 H Absolute Nucleated RBC 0.00 Immature Gran % 1 H Nucleated RBC % 0 PT 10.7 INR 1.0 APTT 24.7 Puncture Site ABG pH ABG pCO2 ABG pO2 ABG HCO3 ABG O2 Saturation ABG Base Excess FiO2 Sodium 142 Potassium 4.2 Chloride 109 H Carbon Dioxide 22.5 Anion Gap 11 BUN 29 H Creatinine 1.2 Estim Creat Clear Calc 45.8 L eGFR 50 L BUN/Creatinine Ratio 24 H Glucose 149 H Calculated Osmolality 291 Lactic Acid Calcium 8.8 Corrected Calcium 8.8 Phosphorus 4.5 Magnesium 2.3 Total Bilirubin 0.2 L AST 15 ALT 15 Alkaline Phosphatase 86 Total Protein 7.1 Albumin 4.0 Globulin 3.1 Albumin/Globulin Ratio 1.3 Triglycerides 127 ABG Interpretation ABG results: 01/22/25 01/23/25 01/23/25 23:05 00:50 04:35 ABG pH 7.21 L 7.20 L 7.30 L D ABG pCO2 60 H 65 H 49 H D ABG pO2 155 H 92 D 114 H D ABG HCO3 24 24 24 ABG O2 Saturation 99 H 95 94 ABG Base Excess -5 L -6 L -3 01/24/25 05:08 ABG pH 7.37 ABG pCO2 39 D ABG pO2 75 L D ABG HCO3 23 ABG O2 Saturation 94 ABG Base Excess -3 Quality Measures Quality Measures VTE prophylaxis Advance care planning discussed with:: patient Assessment & Plan Assessment Current Active Medications: Generic Name Dose Route Start Last Admin Trade Name Freq PRN Reason Stop Dose Admin Acetylcysteine 3 ml 01/24/25 15:00 01/24/25 14:47 Acetylcysteine Rt Janelle 10% 4 Ml Nebu INH 02/23/25 14:59 3 ml Q4HRRT IVANA Administration Albuterol/Ipratropium 3 ml 01/24/25 15:00 01/24/25 14:46 Albuterol/Ipratropium (Duoneb) Rt Janelle 3 Ml Nebu INH 02/23/25 14:59 3 ml Q4HRRT IVANA Administration Diphenhydramine HCl 50 mg 01/23/25 06:00 01/24/25 12:17 Diphenhydramine Inj 50 Mg/Ml Vial IVP 02/22/25 05:59 50 mg Q6HR IVANA Administration Famotidine 20 mg 01/23/25 09:00 01/24/25 08:13 Famotidine Inj 10 Mg/Ml Vial 2 Ml IVP 02/22/25 08:59 20 mg BID IVANA Administration Propofol 1,000 mg in 100 mls @ 3.099 mls/hr 01/22/25 22:16 01/24/25 07:48 Diprivan Ivpb IV 02/21/25 22:15 0 mcg/kg/min .Q24H PRN 0 mls/hr PER PROTOCOL Titration Protocol 5 MCG/KG/MIN Fentanyl Citrate 2,500 mcg in 250 mls @ 2.5 mls/hr 01/23/25 00:33 01/24/25 07:48 Sublimaze Inj 2,500 Mcg/250 Ml Bag IV 01/28/25 00:32 0 mcg/hr .Q24H PRN 0 mls/hr PER PROTOCOL Titration Protocol 25 MCG/HR Methylprednisolone Sodium Succinate 60 mg 01/25/25 09:00 Methylprednisolone Sod Succ 40 Mg/Ml Vial IVP 02/01/25 08:59 QDAY IVANA Sodium Chloride 3 ml 01/22/25 22:34 Sodium Chloride Rt Janelle 0.9% 3 Ml Nebu INH 02/21/25 22:33 PRN PRN SOLN Plan #Anaphylaxis #Angioedema #Tongue Swelling #Allergic Reaction #Shortness of Breath angioedema(hereditary) vs angioedema(other) vs anaphylaxis patient's eosinophil count has been normal throughout admission Unclear asthma history In ED PM 01/23, given racemic epinephrine x 2, Benadryl, Decadron, p.o. Compazine, and subcu epi, and started on epinephrine drip patient swelling somewhat decreased in order to intubate patient to protect her airway Reported history of 2x previous episodes, one necessitating use of epinephrine pen; neither resulted in intubation s/p extubation on 3L NC, saturating >95% O2 Hx of lisinopril use Extensive Meth use COPD patient Poor historian: given patient's poor disclosure of symptoms and triggers, as well as lack of information regarding allergy history, highly conservative measures will be taken to ensure a lack of exposure to potential triggers -Admit to inpatient management from ICU -Daily CBC CMP -Diphenhydramine 50mg q6H IV 01/23 - -Duonebs 3ml INH q4RRT 01/24 - -Methylprednisolone 60mg IV q24h 01/24 - -Holding Lisinopril, Pramipexole for potential triggers -follow up with complement sendout -Soft bland diet with minimal spice requested from dietary #COPD History #Cigarette Smoker Long disclosed history of smoking End-expiratory wheezes/rhonchi on auscultation Prescribed home oxygen w/out use Not in acute exacerbation -Pulse Oximetry -Clinically monitor #Cirrhosis #Alcohol Abuse Patient states that she has a history of cirrhosis, unknown of confirmation by liver biopsy nor by home medication regiment -Daily CBC, CMP; further testing as indicated #Methamphetamine use Hx of use by oral administration since 1998 Last administration AM 01/22 -Have counseled patient on the dangers of continued methamphetamine use, patient amenable to advice #Schizophrenia Pt disclosed long history of schizophrenia on olanzapine 20mg PO QDAY -Resume home dose Olanzapine 20mg qday #Restless Leg Syndrome -holding home Pramipexole 0.5mg in light of anaphylaxis reduction measures #Respiratory Failure - resolved #Intubation - resolved Hospital management: Disposition: inpatient hospitalization with medicine team s/p ICU Fluids: none Diet: soft bland, minimal spice Lines: PIV DVT prophylaxis: SCD's CODE STATUS: full code Patient seen and discussed with attending Dr. Josias Anderson and senior resident Dr. Oneil Blevins MD PGY-1 Attending Provider Attestation/Addendum I have examined the patient, reviewed labs and imaging findings, discussed the case with the resident(s), and reviewed entered orders. I agree with the plan of care as outlined in this note. Dr. Justin MD
[2025-01-25] VITALS (7 sets, daily range): BP systolic 140–159; BP diastolic 78–92; PULSE 85–102; RESP 16–20; TEMP 36.2–37; O2SAT 91–99; BMI 53.1
[2025-01-25] MEDS: ACETYLCYSTEINE RT SOL 10% 4 ML NEBU 3 ML INH ×3 (02:47→10:47)
[2025-01-25] MEDS: ALBUTEROL/IPRATROPIUM (Duoneb) RT SOL 3 ML NEBU INH ×3 (02:47→10:48)
[2025-01-25 06:36] LABS: Basophils # (Auto) 0.0 Thou/mm3 (0.0-0.2); Basophils % (Auto) 0 % (0-2.5); Eosinophils # (Auto) 0.0 Thou/mm3 (0.0-0.5); Eosinophils % (Auto) 0 % (0-10); Hematocrit 34.9 % (36.0-46.0); Hemoglobin 11.1 g/dL (12.0-16.0); Immature Granulocytes Auto 0.06 Thou/mm3 (0.00-0.00); Lymphocytes # (Auto) 1.7 Thou/mm3 (1.0-4.8); Lymphocytes % (Auto) 13 % (10-50); Mean Corpuscular HGB Conc 31.8 g/dl (31.0-37.0); Mean Corpuscular Hemoglobin 28.5 pg (25.0-35.0); Mean Corpuscular Volume 90 fL (80-100); Monocytes # (Auto) 1.2 Thou/mm3 (0.0-0.8); Monocytes % (Auto) 9 % (0-12); Neutrophils # (Auto) 10.4 Thou/mm3 (1.8-7.7); Neutrophils % (Auto) 78 % (37-80); Nucleated Red Blood Cell # 0.00 Thou/mm3 (0.00-0.00); Nucleated Red Blood Cell % 0 /100 WBC (0); Platelet Count 285 Thou/mm3 (140-440); RDW Standard Deviation 46.7 fL (36.4-46.3); Red Blood Count 3.89 Miln/mm3 (4.00-5.20); White Blood Count 13.4 Thou/mm3 (3.6-11.0)
[2025-01-25 07:00] LABS: INR 1.0 (0.9-1.3); Partial Thromboplastin Time 24.9 Seconds (22.0-36.0); Prothrombin Time 10.9 Seconds (9.0-12.2)
[2025-01-25 07:18] LABS: Alanine Aminotransferase 13 U/L (10-49); Albumin, Serum 4.0 gm/dL (3.4-4.8); Albumin/Globulin Ratio 1.3 (1.2-2.2); Alkaline Phosphatase 80 U/L (46-116); Anion Gap 15 (7-16); Aspartate Amino Transferase 17 U/L (0-34); BUN/Creatinine Ratio 21 Ratio (12-20); Bilirubin,Total 0.4 mg/dL (0.3-1.2); Blood Urea Nitrogen 30 mg/dL (9-23); Calcium 8.8 mg/dL (8.3-10.6); Calcium (Corrected) 8.8 mg/dL (8.5-10.1); Carbon Dioxide 21.0 mMol/L (20.0-31.0); Chloride 109 mMol/L (98-107); Creatinine (Component) 1.4 mg/dL (0.6-1.3); Estimated Creatinine Clearance 39.8 mL/min (>60); Globulin 3.0 gm/dL (2.3-3.5); Glucose 88 mg/dL (74-106); Magnesium 1.8 mg/dL (1.6-2.6); Osmolality,Calculated 293 (275-295); Phosphorous 3.3 mg/dL (2.4-5.1); Potassium 3.7 mMol/L (3.4-5.1); Sodium 145 mMol/L (136-145); Total Protein 7.0 gm/dL (5.7-8.2); Triglycerides 166 mg/dL (30-150); eGFR 41 See Note
[2025-01-25] MEDS: FAMOTIDINE INJ 10 MG/ML VIAL 2 ML 20 MG IVP (10:23)
--- NOTE | 2025-01-25 11:02 | PC.SS ---
rounding note: Patient recently extubated. Resides with daughter. Hx: meth. Patient downgraded to tele from ICU. Patient no longer on respiratory devices.
--- NOTE | 2025-01-25 14:20 | ESDS_ITS ---
<Statement entered by Oneil Kelly MD - 01/25/25 14:32> Note reviewed and agree with care plan as documented. Please refer to the note below for further details. Plan discussed with attending physician Dr. Justin Kelly MD PGY-2 Internal Medicine Planned Discharge Date 01/25/25 DS: Providers Provider Date of admission: 01/22/25 23:47 Primary care physician: Physician No Primary/Family Admitting Provider: Basil Posada MD Attending Provider on Admission: Nicole Escamilla MD Consults: 01/23/25 04:02 [facility] Referral - Knowledge Deficit Routine Comment: Positive screening for knowledge deficit needs. 01/24/25 11:18 Referral Speech Therapy Stat Comment: Attending Provider on DC: Lex Blevins MD Discharging Provider: Lex Blevins MD DS: Diagnosis Problem List Completed Was Problem List Reviewed/Reconciled?: Yes Hospital Course Hospital Course Hospital course: Ms. Garg is a 69-year-old female with past medical history significant for cirrhosis secondary to alcohol use, hepatitis C, hypertension, COPD, chronic kidney disease presented to the ED with excessive tongue swelling on 02/01/2025. Per patient's daughters, last well-known time was 6 PM. She was seen in the ED and a burrito her friend made which included ground beef chorizo, sour cream and cheese for the first time. Around 7 PM, patient told her daughter who just had came home, that she felt like she was chewing her tongue, while eating her burrito. Around 7:30 PM, her daughter gave her 2 Benadryl and loratadine, however patient's swelling of her tongue and face continued to increase in size, and decided to call the ambulance at 9:42 PM. Of note, patient has had her first episode of tongue swelling on 06/01/2023 where she was then seen by her regular doctor and was treated with loratadine and Banophen, which seem to have resolved her symptoms shortly after. She had another episode on 10/31/2024 where her face was swollen, and was given epi shot, and symptoms shortly resolved. Past medical history: As mentioned above Past surgical history: Bilateral knee surgeries years ago Meds: Patient takes olanzapine 20 mg daily, lisinopril/hydrochlorothiazide 20?25mg, Effexor 37.5 milligrams daily, pramipexole 0.5 mg twice daily, amlodipine 5 mg daily. Per daughter, patient tries to take all her medications daily however does forget at times. Social history: Patient lives with her daughter. Is a current smoker, smokes 10 cigarettes a day for the last 10 years, severe drinker in the past, but quit about 20 years ago, and has used meth in the past, but daughters are unsure when her last meth use was. Family history: Unknown as patient was adopted Allergies: Per patient's daughters NKDA up to now ED course: After coming into the ED, patient initially seen with 4+ sublingual swelling along with massive lingual edema, minimally stridorous, requiring oxymask. Per ER doctor, patient's tongue was swollen and touching the upper palate. ED vitals 139/98, HR 93, RR 16, Temp 98.4F, on Oxymask, unsure how many liters. After being given racemic epinephrine x 2, Benadryl, Decadron, p.o. Comp azine, and subcu epi, and started on epinephrine drip patient swelling somewhat decreased in order to intubate patient to protect her airway. Patient has a 6 inch ET tube with 7 mL/kg vent settings, started on propofol drip. CXR showed Bilateral perihilar bibasilar pneumonia, significant pneumonia left base, possible left pleural fluid, tracheal tube tip 3 cm above rafaela, and moderate vascular congestion. ICU was consulted for further management of patient with anaphylactic shock. 01/23/2025 Patient examined bedside. Currently on propofol 40 and fentanyl 75 intubated an echo was done bedside showed good contractility of the heart patient GCS she was able to open eyes and follow commands intubation prevented her from speaking. The family informed interviewers that patient has bedbugs at home contact precautions have been placed; her ABG showed improved respiratory acidosis her UDS came back positive for meth she had her phosphorus and magnesium repleted. Pharmacy spoke to resident and recommends holding Icatibant, since it is only useful in the acute phase. They also recommend holding ACEi and ropinole due to risk for angioedema, and recommend potentially increasing amlodipine for blood pressure management. 01/24/2025 Overnight the repeat lactic acid trended down to 1.3 ABG showed pH of 7.37 pCO2 of 39 he was given Versed the RASS score of +1 propofol 45 fent to 125 Today upon examination patient passed her spontaneous breathing trial and extubated. Her ins and outs for the day are 24 hours at 1.1 L out without bowel movements and I inspected the urine bag was 200 mL of yellow urine. Her tongue swelling is improved. We recommend following up with an hatch supervisor for testing. Continuin methylprednisone but decrease it to daily and then stop tomorrow. she has worsening rhonchi on exam getting her chest PT and suction as well as DuoNebs Q6. Her creatinine went down to 1.1 possibly making this an MOLLY since her baseline was thought to be 1.5. For her bedbugs will get a give her primethoprim. I will start her diet as renal pending swallow eval. BP 01/24/2025: 69 year old female w/ PMH as stated above w/ hospital course above presents as a downgrade from ICU s/p stabilization, extubation. Pt is conversive, resting well in bed without respiratory difficulty. She confirms history of eating a burrito and in 30 minutes her tongue started swelling to which she was taken to the ED and subsequently intubated. Has no endorsed history of allergies but states that tongue swelling has happened before, most recently at her PCP appointment(10/31/2024) to which epinephrine stopped the swelling. Ms. Garg endorses use of her home lisinopril-hydrochlorothiazide use for blood pressure management for 'many years' as well as methamphetamine use, to which she 'eats it' since 1998. Has been taking olanzapine since '1986' for schizophrenia. Has not had previous allergen testing. Ms. Garg confirms a history of COPD to which home oxygen was prescribed to her but is not currently using. Patient is AxOx4 and GCS 15. Physical examination reveals normal neurological exam and a normal, mobile tongue without evidence of edema. Posterior tonsils and soft pallate are visualized, Mallampati 1a during examination. Significant end- expiratory rhonchi and pursed-lipsed breathing is noted on exam, O2 saturation 97% on 3L NC. Pt confirms history of 2x previous tongue swelling to which allergy medications were given and 1x dose of epinephrine(epipen) on the second episode. Does not know what triggered these episodes. History and potential workup for triggers of her angioedema/anaphylaxis via questioning are as follows: Methamphetamine: last use was in AM 01/23, morning before PM admission and intubation Smoking: smokes daily, has smoked 'for awhile' and cannot remember when she started Lisinopril-hydrochlorothiazide: takes daily as prescribed Pramipexole: takes daily for RLS Burrito: beef chorizo, cheese, sour cream, tortilla - does not denote any history of allergies, no rashes to these ingredients On admission, patient remains stable and expresses no obvious concerns. Ms. Garg was admitted to medicine in PM of 01/24, and has remained stable, ambulating, passing urine and stool and eating/drinking without concern. She was extensively counseled on stopping methamphetamine use as well as cessation of smoking. Additionally, avoiding possible triggers was advised and follow up with PCP within 72 hours. Ms. Garg has been counseled to see an hatch supervisor with referral from her PCP to elucidate what potential triggers cause her allergic reactions. Her Home lisinopril and pramipexole were held, and amlodipine and thiazide regimens were increased. Additionally pt was discharged with prescription for an Epinephrine injectable pen with instructions on timely use. #Anaphylaxis #Angioedema #Tongue Swelling #Allergic Reaction #Shortness of Breath #COPD History #Cigarette Smoker #Cirrhosis #Alcohol Abuse #Methamphetamine use #Schizophrenia #Restless Leg Syndrome #Respiratory Failure - resolved #Intubation - resolved Discharge instructions NO DAPHNIE INHIBITORS UNDER ANY CIRCUMSTANCES Stop taking your lisinopril We have sent you an epinephrine pen(EpiPen), if symptoms of immediate tongue swelling shortness of breath happen please use it Follow up with your primary care provider within 72 hours We have put your pramipexole on hold Please take your medications as directed and stop taking the ones as denoted above For any worsening shortness of breath, headache, nausea/vomiting or dizziness please do not hesitate to return to the emergency department we have increased your amlodipine dose Please have your EpiPen with you at all times Please stop taking methamphetamines Status at Discharge Cognitive/behavioral status at discharge: stable at baseline Time Spent with Patient Time attestation: Total time spent providing and/or coordinating discharge services: Time spent: Greater than 30 minutes Exam Vital Signs Temp Pulse Resp BP Pulse Ox O2 Del Method O2 Flow Rate 98.6 F 90 17 145/92 H 95 Room Air 3 01/25/25 12:00 01/25/25 12:00 01/25/25 12:00 01/25/25 12:00 01/25/25 12:00 01/25/25 12:00 01/24/25 22:25 FiO2 35 01/24/25 08:01 Narrative Exam General: alert and oriented to self/place/year, no acute distress, able to speak full sentences; enlarged body habitus, otherwise stable, at baseline HEENT: NC/AT, mucous membranes moist, bilateral sclera anicteric Cardiovascular: regular rate and rhythm, S1/S2 present, no murmurs appreciated Pulmonary: clear to auscultation bilaterally, no rales/rhonchi/wheezes Abdominal: soft, nontender, present bowel sounds Musculoskeletal: no peripheral edema Skin: Warm, well-perfused Discharge Plan Plan Patient Disposition: HOME (Self Care) Patient condition on transfer: Stable Care Plan Goals: NO DAPHNIE INHIBITORS UNDER ANY CIRCUMSTANCES Stop taking your lisinopril We have sent you an epinephrine pen(EpiPen), if symptoms of immediate tongue swelling shortness of breath happen please use it Follow up with your primary care provider within 72 hours We have put your pramipexole on hold Please take your medications as directed and stop taking the ones as denoted above For any worsening shortness of breath, headache, nausea/vomiting or dizziness please do not hesitate to return to the emergency department we have increased your amlodipine dose Please have your EpiPen with you at all times Please stop taking methamphetamines Prescriptions/Referrals Prescriptions/Med Rec: New amlodipine 10 mg tablet 10 mg PO QDAY Qty: 30 0RF epinephrine [EpiPen] 0.3 mg/0.3 mL auto-injector 0.3 ml subcut .x1 PRN (Reason: hypersensitivity reaction) Qty: 1 0RF diphenhydramine HCl [Allergy (diphenhydramine)] 25 mg capsule 25 mg PO TID PRN (Reason: swelling, rash, itchiness) Qty: 30 0RF albuterol sulfate [Ventolin HFA] 90 mcg/actuation HFA aerosol inhaler 2 inh inhalation QID PRN (Reason: shortness of breath or wheezing) Qty: 8.5 0RF Trelegy Ellipta 100-62.5-25 mcg blister with device 1 inh inhalation Q24H Qty: 60 0RF Continued olanzapine 20 mg Tablet 20 mg PO QDAY venlafaxine 37.5 mg tablet 37.5 mg PO DAILY Patient Comments: TAKE ONE TABLET BY MOUTH EVERY DAY WITH FOOD Held pramipexole 0.5 mg tablet 0.5 mg PO BID Hold Instructions: Hold until you follow-up with your PCP Patient Comments: TAKE ONE TABLET BY MOUTH TWICE DAILY FOR RESTLESS LEG SYNDROME Discontinued ibuprofen 800 mg tablet 800 mg PO TID PRN (Reason: pain) Qty: 30 0RF amlodipine 5 mg tablet 5 mg PO QDAY Patient Comments: TAKE ONE TABLET BY MOUTH EVERY DAY FOR BLOOD PRESSURE lisinopril-hydrochlorothiazide 20-25 mg tablet 1 tab PO QDAY Patient Comments: TAKE ONE TABLET BY MOUTH EVERY DAY FOR BLOOD PRESSURE Referrals: No Primary/Family,Physician [Primary Care Provider] Patient/Caregiver Discharge Instructions Discharge Activity: activity as tolerated Education Materials: Addiction Recovery Counseling, Anaphylactic Shock Dc Print Language: Icelandic Stand Alone Forms: [employer] Award Info., Patient Portal Info Letter Discharge Order Discharge Orders: Discharge (Routine); Ordered 01/25/25 Ordered By: Oneil Kelly Quality Discharge Quality Measures none MD Attestestation MD Attestation I have examined the patient, reviewed labs and imaging findings, discussed the case with the resident(s), and reviewed entered orders. I agree with the plan of care as outlined in this note. Time Spent: [address] Justin MD
[2025-01-26 06:35] LABS: Complement Component C4c* 25 mg/dL (15-57)
--- NOTE | 2025-01-26 12:02 | PC.SS ---
SS received call from daughter, Judit. SS called Judit @ [phone] and she was requesting home health services. No PT evaluation was completed during this admission. SS updated physician team and they are agreeable to adding order. Updated transfer nurse. Patient does see a p.c.p. Updated daughter who was pleased.
--- NOTE | 2025-01-26 15:57 | PC.CC ---
HH referral sent. [facility] accepted and booked. SOC pending.
--- NOTE | 2025-01-27 19:17 | PC.CM ---
[facility] accepted patient and start of care date set for 01/30.
== END 2025-01-25 13:45 | disposition home or self-care (01) | DRG 915 ==
LOC: SERX 23:46 → SERHOLD 01-23 00:05 → S2SX 01-23 03:16 → S2NX 01-24 17:02
PROVIDERS: Student in an Organized Health Care Education/Training Program; Admitting Provider Student in an Organized Health Care Education/Training Program; Emergency Provider Emergency Medicine; Visit Provider Internal Medicine
DX: T78.2XXA Anaphylactic shock, unspecified, initial encounter (principal); J18.9 Pneumonia, unspecified organism; J96.01 Acute respiratory failure with hypoxia; J96.02 Acute respiratory failure with hypercapnia; J44.0 Chronic obstructive pulmonary disease with (acute) lower respiratory infection; E87.29 Other acidosis; N17.9 Acute kidney failure, unspecified; F17.210 Nicotine dependence, cigarettes, uncomplicated; N18.9 Chronic kidney disease, unspecified; I12.9 Hypertensive chronic kidney disease with stage 1 through stage 4 chronic kidney disease, or unspecified chronic kidney disease; J38.4 Edema of larynx; F31.9 Bipolar disorder, unspecified; F15.90 Other stimulant use, unspecified, uncomplicated; N18.32 Chronic kidney disease, stage 3b; K70.30 Alcoholic cirrhosis of liver without ascites; B19.20 Unspecified viral hepatitis C without hepatic coma; G25.81 Restless legs syndrome; T78.3XXA Angioneurotic edema, initial encounter; F29 Unspecified psychosis not due to a substance or known physiological condition; F10.10 Alcohol abuse, uncomplicated; B18.2 Chronic viral hepatitis C; F20.9 Schizophrenia, unspecified
CPT/HCPCS: 36415; 36600; 51702; 71045; 80053; 80307; 81001; 82550; 82803; 83520; 83605; 83735; 84100; 84478; 85025; 85610; 85730; 86160; 86161; 86850; 86900; 86901; 87081; 87205; 87811; 92610; 94002; 94003; 94640; 94664; 94667; 94762; 96365; 96366; 96375; 99291; A4314; A9270; J0164; J0166; J0780; J1100; J1200; J2250; J2704; J2919; J3010; J3475; J3490; J7120; J7999